=== PATIENT | male | born 1985 | race African-American/Black ===

== ENCOUNTER 2020-09-09 10:50 | Outpatient (REF) | payer OTHER, SELFPAY ==
[2020-09-11 20:46] LABS: Norfentanyl, Ur >500.0 ng/mL (<0.5)
== END 2020-09-09 10:51 | disposition home or self-care (01) ==
LOC: HO.LAB 10:50
PROVIDERS: Visit Provider Internal Medicine
DX: F11.99 Opioid use, unspecified with unspecified opioid-induced disorder (principal); Z72.89 Other problems related to lifestyle; F17.200 Nicotine dependence, unspecified, uncomplicated
CPT/HCPCS: 80305; 80354; 99202

== ENCOUNTER 2020-09-13 11:08 | Outpatient (REF) | payer OTHER, SELFPAY ==
[2020-09-13 12:20] LABS: MANUAL DIFF FLAG NO
[2020-09-13 12:24] LABS: Basophils Percent Auto 0.5 % (0-2); Eosinophils Absolute Auto 0.4 X10*3/uL (0.0-0.4); Hematocrit 44.7 % (42-52); Hemoglobin 15.1 g/dl (14.0-18.0); Imm Gran Abs Auto 0.01 X10*3/uL (0.00-0.03); Imm Gran Pct Auto 0.1 % (0.0-0.4); Lymphocytes Absolute Auto 2.3 X10*3/uL (1.2-4.9); Lymphocytes Percent Auto 25.6 % (20-40); Mean Corpuscular HGB Conc 33.8 g/dl (31.0-36.0); Mean Corpuscular Hemoglobin 30.3 pg (27.0-33.0); Mean Corpuscular Volume 89.8 fL (80-98); Mean Platelet Volume 9.2 fL (9.4-12.4); Monocytes Absolute Auto 0.9 X10*3/uL (0.1-1.2); Monocytes Percent Auto 10.6 % (2-11); Neutrophils Absolute Auto 5.1 X10*3/uL (2.0-8.3); Neutrophils Percent Auto 58.2 % (45-73); Platelet Count 327 X10*3/uL (160-400); Red Blood Count 4.98 X10*6/uL (4.60-5.80); Red Cell Distribution Width 11.9 % (11.0-16.0); White Blood Count 8.8 X10*3/uL (4.8-10.8)
[2020-09-13 13:12] LABS: Alanine Aminotransferase 24 U/L (0-40); Albumin Level 4.3 g/dL (3.5-5.0); Alkaline Phosphatase 100 U/L (39-117); Anion Gap 13 (12-20); Aspartate Amino Transferase 22 U/L (5-37); Bilirubin Direct 0.2 mg/dL (0.0-0.5); Bilirubin Total 0.5 mg/dL (0.0-1.0); Blood Urea Nitrogen 15 mg/dL (9-16); Calcium 9.2 mg/dL (8.4-10.2); Carbon Dioxide 27 mmol/L (22-29); Chloride 100 mmol/L (96-108); Estimated Glomerular Filt Rate > 60; Glucose Random 87 mg/dL (60-115); Potassium 4.3 mmol/L (3.3-5.1); Sodium 136 mmol/L (135-145); Total Protein 6.5 g/dL (6.5-8.0)
[2020-09-16 03:49] LABS: HIV AB/AG Nonreactive (Nonreactive); HIV Num 1 0.13 S/CO (0.00-0.99); ~HepC Num1 0.07 S/CO (0.00-0.79); ~Hepatitis C Antibody Nonreactive (Nonreactive)
[2020-09-16 03:55] LABS: HBsAGNum1 0.35 S/CO (0.00-0.99); Hepatitis B Surface Antigen Negative (Negative); ~Hepatitis B Surface Antibody NONREACTIVE (Nonreactive)
[2020-09-16 16:37] LABS: TS Negative Control Passed; TS Panel A 0; TS Panel B 0; TS Positive Control Passed; TSpotTB Negative (SeeBelow)
[2020-09-18 09:23] LABS: Hepatitis A Antibody IgG Nonreactive (Nonreactive)
== END 2020-09-13 11:09 | disposition home or self-care (01) ==
LOC: HO.LAB 11:08
PROVIDERS: PCP Internal Medicine; Visit Provider Internal Medicine
DX: Z51.81 Encounter for therapeutic drug level monitoring (principal); Z11.4 Encounter for screening for human immunodeficiency virus [HIV]; Z01.84 Encounter for antibody response examination; F11.99 Opioid use, unspecified with unspecified opioid-induced disorder
CPT/HCPCS: 36415; 80048; 80076; 80305; 85025; 86481; 86706; 86708; 86803; 87340; 87389

== ENCOUNTER → 2020-09-17 10:36 | Outpatient (BNVA) | payer OTHER, SELFPAY | PROVIDERS: PCP Internal Medicine; Visit Provider Internal Medicine | DX: F11.99 Opioid use, unspecified with unspecified opioid-induced disorder (principal); Z51.81 Encounter for therapeutic drug level monitoring | CPT/HCPCS: 80305 ==

== ENCOUNTER 2020-12-24 06:52 | Emergency (ER) | payer OTHER, SELFPAY | END 2020-12-24 09:50 | disposition left against medical advice (07) | PROVIDERS: Emergency Provider Emergency Medicine | DX: R10.9 Unspecified abdominal pain (principal) ==

== ENCOUNTER 2022-11-28 17:28 | Inpatient (IN) | payer OTHER, SELFPAY ==
[2022-11-28 17:50] VITALS: BP 163/98; PULSE 60; TEMP 36.3
[2022-11-28 18:54] VITALS: BMI 27.3
[2022-11-28] MEDS: Nicotine Polacrilex 2 MG GUM 4 MG BUCCAL (22:37)
[2022-11-28] MEDS: LORazepam 1 MG TABLET PO (22:37)
--- NOTE | 2022-11-29 05:27 | HO.PSYADMNOT ---
HPI Date of Service: 11/29/22 Chief Complaint: Depressive Disorder Sources of Information: patient interviewed, chart reviewed and crisis/core team assessment reviewed HPI Subjective Notes: [place] Warning and Conditional Voluntary Healthcare Proxy: No Guardianship: No Medical Problems Affecting Mental Status: No Narrative: 37 yo male, s/p suicide attempt via overdose of a combination of heroin, 50 bags, standard methadone dose prescribed, #10 Trazodone, #3 Klonopin, #3 Gabapentin and cocaine in response to a job loss and subsequent loss of relationship due to him not being truthful regarding the job loss. Hx of suicide attempts, in 2019 pt jumped from a window in an attempt as well. Reports an increase in depressive sx over the past few months with feelings of irritability. Pt declined to offer much information. He is in bed, reporting not feeling very well, and asks to be left to sleep/rest. Past Psychiatric History: IP: [id number] OP: No current team Medical Evaluation Reviewed: Hospitalist Kirt Pending [facility] Medical History (Updated 11/29/22 @ 11:28 by Renata Mcelroy APRN) Alcohol use disorder Cannabis use disorder Cocaine use disorder Opioid use disorder Recurrent major depression Tobacco use disorder Family History: Denies Social History: Born, raised in [place]. Two sisters. Three children with not a close connection. Completed high school. Lives with partner who just ended their relationship. Recent job loss Denies legal issues Substance History: Cocaine Heroin Cannabis Uses substances to medicate mental health issues and symptoms Followed by [facility] Trauma History: Denies Diagnostics Vital Signs (24Hr): Vital Signs - 24 hr 11/28/22 17:50 Temperature 97.4 F Pulse Rate 60 Blood Pressure 163/98 H Oxygen Delivery Method Room Air BMI result Body Mass Index 27.3 Labs Labs: CBC- WNL 11/27 Chem- GFR Creat Cl 107 11/27 Toxicology Cannabis, Cocaine, Opiates COVID- negative EKG- NSR QTc 446 TSH 0.4 EKG EKG: reviewed EKG Comment: NSR, QTc 446 Meds/Allergies Meds Home Medications Medication Instructions Recorded Confirmed Type methadone 10 mg/mL oral 70 mg PO DAILY 11/29/22 11/29/22 History concentrate (Methadone Intensol) Allergies Allergies Allergy/AdvReac Type Severity Reaction Status Date / Time shellfish derived Allergy Unknown Unknown Verified 09/17/20 11:36 Mental Status Exam Mental Status Exam Patient Appearance: Fatigued Patient Orientation: Person, Place, Time and Situation Level of Consciousness: Drowsy and Sedated Patient Behavior: Passive, Asleep, Avoidant, Fatigued, Isolative and Poor Eye Contact Mood Description: Depressed Affect Description: Flat Patient Cognition Impaired: No Ability to Follow Directions: Fair Speech Pattern: Spontaneous Speech Memory Description: Episodic Impaired Hallucinations: None Delusions: Not Present Perceptual Disturbances: Depersonalization and Derealization Thought Process: Rumination Thought Content: positive for Perseveration and positive for Suicidal Ideation Depressive Symptoms: Sleeping More Than Usual, Feelings of Worthlessness, Hopelessness, Unhappiness, Thoughts of /Suicide, Low Self Esteem and Loss of Energy Judgement: Fair Assessment & Plan Assessment & Plan (1) Recurrent major depression: Status: Acute Code(s): F33.9 - Major depressive disorder, recurrent, unspecified Assessment and Plan: 37 yo male, transfer from [facility], s/p suicide attempt via OD of his daily methadone dose, 50 bags of heroin, 10 trazodone, 3 klonopin, 3 gabapentin and cocaine in response to a job loss and loss of relationship due to not telling his partner he lost his job. Pt expressing hopelessness and thoughts that life is not worth living. Plan: Clonidine, Ativan prn Continue Methadone MVI, Thiamine Diagnostics: Folate, B12, FT4, A1c, Lipid, Mg Collateral Contact When pt feeling better able to participate, discussion of psychotropic regime to treat reported increase in depressive sx. (2) Opioid use disorder: Status: Acute Code(s): F11.99 - Opioid use, unspecified with unspecified opioid-induced disorder (3) Cocaine use disorder: Status: Acute Code(s): F14.10 - Cocaine abuse, uncomplicated (4) Cannabis use disorder: Status: Acute Code(s): F12.90 - Cannabis use, unspecified, uncomplicated Patient educated on: therapeutic strategies Informed Consent: understands Reason for continued inpatient stay Substantial Risk for: harm to self and rapid decompensation Statement Statement: I have reviewed the history and physical and performed a pertinent examination on my patient. No changes have occurred unless specified. If the History and Physical was not performed prior to admission, the Hospitalist's service will be consulted for completing the admission physical. Time Spent With Patient Time: Total time managing care of this patient today ____ minutes.
--- NOTE | 2022-11-29 05:54 | PC.ADMIT ---
Patient is a 37 year old [place] Korean speaking Afghan male admitted as a CV admission to 11/28/22 and placed on 15 minute safety checks. Patient was medically cleared in the [facility] Emergency room, evaluated by YESSENIAN and deemed in need of IPLOC secondary to a suicide attempt by toxic ingestion. Patient had disclosed that he had taken 10 Trazadones, 3 Klonopins, 3 Gabapentin, 50 bags of Heroin and snorted cocaine. His precip, per his report, losing a job and his relationship with his girlfriend. In 2019 patient had a suicide attempt by jumping from a window to end his life. He has had no previous admissions. Patient was cooperative during the admission process and mentioned that he needed someone to let him use his telephone to call his Methadone provider to verify his current dose. He also said that he and his girlfriend were every day drinkers of Etoh and would often share a gallon of liquor. During the admission process, patient said he was glad he survived his suicide attempt and wanted to get help for his substance use. He denied any medical issues. No SI, HI, AH or VH were reported. Lynda Celeste, investigations consultant provider, made aware of admission. Orders received, patient able to sign all legals, safety tool and treatment plan done.
--- NOTE | 2022-11-29 06:14 | PC.NURSE ---
Patient mentioned that he has tried Suboxone before but believes Methadone works better.
--- NOTE | 2022-11-29 08:32 | PC.NURSE ---
Methadone last dose obtained via phone from KAMALA Rendon @ [place], [place]. [phone]. Last dose 11/27/2022 5:59 am 70mg (dose repeated back 2x) .
--- NOTE | 2022-11-29 08:46 | HE.PHANOTE ---
RE: METHADONE Pharmacy has received patients methadone verification form. Patient was confirmed to be on dose of 70 mg daily with last dose of 11/27/22 @ 0559. Confirmed with LEXUS Colon
[2022-11-29] MEDS: Nicotine 21 MG PATCH.TD24 TRANSDERMA (09:08)
[2022-11-29] MEDS: Multivitamin TABLET 1 TAB PO (09:09)
[2022-11-29] MEDS: Folic Acid 1 MG TABLET PO (09:09)
[2022-11-29] MEDS: Thiamine HCL 100 MG TABLET PO (09:09)
[2022-11-29 09:23] VITALS: BP 148/90; PULSE 80; RESP 18; TEMP 36.7; O2SAT 99
[2022-11-29] MEDS: Nicotine Polacrilex 2 MG GUM 4 MG BUCCAL ×4 (11:39→20:15)
--- NOTE | 2022-11-29 14:28 | HO.PM.IMCN ---
History of Present Illness Data of Consult Service Date: 11/29/22 Requesting physician: Renata Mcelroy Primary Care Provider: None Physician HPI Reason for consult: medical H&P 37-year-old male with history of alcohol dependence, polysubstance abuse, opioid dependence on methadone who is a current 1 pack per day smoker admitted to Psychiatry from [facility] ED with consult placed to hospitalist service for medical H and P. He also tells me he consumes 7-8 shots of alcohol on a daily basis. Denies any current withdrawal symptoms or history of withdrawal seizure. He is being monitored on CIWA line has lorazepam p.r.n. for withdrawal. He follows with the [facility] clinic for his methadone and states last inhaled heroin use was 2 days ago. Prior to this he had been clean for some time. He has no complaints at this time and is feeling well. He has been hypertensive since arrival, denies known history of hypertension. BP this am was 148/90. No headaches, visual changes, or chest pain. Vitals otherwise stable. Reviewed vitals from [facility]. Has been persistently hypertensive to 169/113. In the ED, there is mild leukocytosis of 11.2. Renal function normal, electrolyte levels normal. Urine tox screen positive for cannabis, cocaine, opiates. EKG showed NSR, rate 82, no ST/T-wave abnormalities. Does have remote history of IV drug abuse and most recent hepatitis studies on 11/11 were negative. Review of Systems Review of Systems: General: No fevers, malaise, unintentional weight loss HEENT: No blurred vision, diplopia. No sore throat, nasal congestion, rhinorrhea, sinus pain, ear pain Cardiovascular: No chest pain, palpitations, or leg edema Respiratory: No shortness of breath, wheezing, cough GI: No abdominal pain, nausea, vomiting, diarrhea, constipation, melena, hematochezia : No dysuria, hematuria, increased urinary frequency, decreased urinary output MSK: No myalgia, back pain Neuro: No headaches, weakness, paresthesias Skin: No rashes or lesions COUNT INCLUDES THE [facility] Medical History (Updated 11/29/22 @ 14:36 by MARIO ALBERTO Jones) Alcohol use disorder Cannabis use disorder Cocaine use disorder Hypertension Opioid use disorder Recurrent major depression Tobacco use disorder Social History Household Members: Significant Other Housing: House Do you presently have visiting nurse or other home services: No Patient Tobacco Use Status: Current everyday Tobacco user Tobacco use type: Cigarette and Cigar Cigarette Packs Per Day: 2 Cigarettes Per Day: 40.0 Smoked in Last 30 Days: Yes Patient Interested in Nicotine Replacement: Yes Patient Given Instructions on How to Stop Smoking: Yes Date Education Initiated: 11/28/22 Second Hand Smoke Exposure: Yes Use of substances other than those prescribed or required for medical reasons: Yes Substance Use Type: Crack/Cocaine and Opiates Substance Use Frequency: Chronic Longstanding Last Used Substance: Just Prior to Admission Currently Displaying Signs/Symptoms of Drug Intoxication Withdrawal: No Any prior treatment program specific to substance use: No Have you been hit, kicked, punched, or otherwise hurt by someone within the past year? If so, by whom?: No Do you feel safe in your current relationship?: Yes Is there a partner from a previous relationship who is making you feel unsafe now?: No Are you made to feel afraid or neglected: No Spiritual Healthcare Practices: none Episcopalian Healthcare Practices: none Cultural Healthcare Practices: none Advance Directives: No Advance Directives Information Provided: No Do you have thoughts of harming others: None Do you have a plan to hurt others: No Plan Recently lost weight without trying: No Eating poorly because of decreased appetite: No Nutrition Risks: No Nutritional Risk Poor oral hygiene: No Meds Allergies Allergy/AdvReac Type Severity Reaction Status Date / Time shellfish derived Allergy Unknown Unknown Verified 09/17/20 11:36 Active Medications: Current Medications Acetaminophen (Acetaminophen 325 Mg Tablet) 650 mg PO Q6H PRN PRN Reason: Headache/Pain Mild Scale (1-3) Al Hydroxide/Mg Hydroxide (Magnesium Hydrox/Alum Hydrox 30 Ml Oral.Susp) 30 ml PO Q6H PRN PRN Reason: Heartburn/Nausea Clonidine HCl (Clonidine Hcl 0.1 Mg Tablet) 0.1 mg PO TID PRN; Protocol PRN Reason: withdrawal Folic Acid (Folic Acid 1 Mg Tablet) 1 mg PO DAILY NIVIA Last Admin: 11/29/22 09:09 Dose: 1 mg Hydroxyzine HCl (Hydroxyzine Hcl 25 Mg Tablet) 25 mg PO Q6H PRN PRN Reason: Anxiety Lorazepam (Lorazepam 1 Mg Tablet) 1 mg PO Q4H PRN PRN Reason: withdrawal Last Admin: 11/28/22 22:37 Dose: 1 mg Magnesium Hydroxide (Milk Of Magnesia 30 Ml Oral.Susp) 30 ml PO DAILY PRN PRN Reason: Constipation Methadone HCl (Methadone Hcl 20 Mg/2 Ml Oral.Conc) 70 mg PO DAILY [facility] Last Admin: 11/29/22 09:09 Dose: 70 mg Multivitamins/Vitamin C (Multivitamin Tablet) 1 tab PO DAILY [facility] Last Admin: 11/29/22 09:09 Dose: 1 tab Nicotine (Nicotine 21 Mg Patch.Td24) 21 mg TRANSDERMA DAILY [facility] Last Admin: 11/29/22 09:08 Dose: 21 mg Nicotine Polacrilex (Nicotine Polacrilex 2 Mg Gum) 4 mg BUCCAL Q2H PRN PRN Reason: Nicotine Cravings Last Admin: 11/29/22 11:39 Dose: 4 mg Thiamine HCl (Thiamine Hcl 100 Mg Tablet) 100 mg PO DAILY [facility] Last Admin: 11/29/22 09:09 Dose: 100 mg Trazodone HCl (Trazodone Hcl 50 Mg Tablet) 50 mg PO BEDTIME MRX1 PRN PRN Reason: Insomnia Home Medications Medication Instructions Recorded Confirmed Last Taken Type methadone 10 mg/mL oral 70 mg PO DAILY 11/29/22 11/29/22 11/27/22 History concentrate (Methadone Intensol) Physical Exam Vital Signs and Narrative: Vital Signs: Last Vital Signs Temp 98.1 F 11/29/22 09:23 Pulse 80 11/29/22 09:23 Resp 18 11/29/22 09:23 BP 148/90 H 11/29/22 09:23 Pulse Ox 99 11/29/22 09:23 O2 Del Method Room Air 11/29/22 09:23 BMI result Body Mass Index 27.3 Constitutional - Awake and Alert, No apparent distress Eyes - PERRLA, EOMI Cardiovascular - S1S2, RRR, No edema Respiratory - Normal lung expansion, Normal respiratory effort, No respiratory distress, CTA bilaterally Gastrointestinal - NT / ND; +BS; No rebound or guarding Extremities - no calf tenderness bilaterally, no swelling Musculoskeletal - Normal inspection, normal ROM Skin - Warm/Dry Neurological - Alert & oriented x3, CN II-XII in tact, 5/5 strength BUE and BLE Psychological - Appropriate affect Assessment and Plan (1) Routine medical exam: Status: Acute Plan 37-year-old male with history of alcohol dependence, polysubstance abuse, opioid dependence on methadone who is a current 1 pack per day smoker admitted to Psychiatry from [facility] ED with consult placed to hospitalist service for medical H and P. #Mood disorder -plan per Psychiatry # new diagnosis hypertension -persistently elevated blood pressures up to 163/113 at [facility] ED -initiate amlodipine 5 mg daily -monitor blood pressures # alcohol dependence, at risk for serious withdrawal -continue monitoring on CIWA. CIWA score on exam 0 -No hx etoh w/d seizure -Lorazepam prn per protocol #Polysubstance abuse -Last use inh cocaine, heroin 2 days ago -Continue methadone -Plan per psychiatry -Remote history IVDA. Negative hepatitis panel 11/11. LFTs normal #Nicotine dependence -continue NRT -Cessation counseling #Recent dental abscess -tx with abx from dentist who was unable to perform surgery due to elevated blood pressure -not complaining of pain at this time -ibuprofen p.r.n., outpatient follow-up with dentistry Thank you for allowing me to participate in this consult. Signing off at this time. Please do not hesitate to call for further questions. Time Spent With Patient Time: Total time managing care of this patient today ____ minutes.
[2022-11-29 14:54] LABS: Estimated Average Glucose 97 mg/dL
[2022-11-29] MEDS: amLODIPine Besylate 5 MG TABLET PO (14:57)
[2022-11-29 15:01] VITALS: BP 154/94
[2022-11-29 15:07] LABS: Cholesterol 194 mg/dL; HDL Cholesterol 56 mg/dL; LDL Cholesterol Calculated 111 mg/dl; Magnesium 2.2 mg/dL (1.6-2.6); Triglycerides 135 mg/dL
[2022-11-29 15:21] LABS: Free T4 (Free Thyroxine) 1.01 ng/dL (0.71-1.85)
[2022-11-29 15:46] LABS: Folate > 20.0 ng/mL (> or = 4.0); Vitamin B12 1024 pg/mL (200-900)
[2022-11-29 18:00] VITALS: BP 138/82; PULSE 88; RESP 20; TEMP 36.6; O2SAT 98
[2022-11-29] MEDS: LORazepam 1 MG TABLET PO (20:15)
[2022-11-30 08:00] VITALS: BP 122/92; PULSE 72; RESP 18; TEMP 36.3; O2SAT 98
[2022-11-30] MEDS: Multivitamin TABLET 1 TAB PO (08:23)
[2022-11-30] MEDS: amLODIPine Besylate 5 MG TABLET PO (08:23)
[2022-11-30] MEDS: Thiamine HCL 100 MG TABLET PO (08:23)
[2022-11-30] MEDS: Folic Acid 1 MG TABLET PO (08:23)
[2022-11-30] MEDS: Nicotine 21 MG PATCH.TD24 TRANSDERMA (08:27)
[2022-11-30] MEDS: Nicotine Polacrilex 2 MG GUM 4 MG BUCCAL ×3 (08:51→20:11)
--- NOTE | 2022-11-30 11:50 | HO.PSYCHPN ---
Subjective Subjective Date of Service: 11/30/22 Reason For Visit: Depressive Disorder Subjective Notes: Conditional Voluntary Healthcare Proxy: No Guardianship: No Medical Problems Affecting Mental Status: No Interim History: Denies all symptoms today. Attended groups. Declined to meet with mortgage or loan underwriter, states he needs to nap today. Reviewed care in team Medication Compliance: Yes Side effects from medications: No Attending Groups: Yes Review of Systems Acute medical concerns: No Medical Review of Systems: unchanged Mental Status Exam Mental Status Exam Patient Appearance: Fatigued Patient Orientation: Person, Place, Time and Situation Level of Consciousness: Drowsy and Sedated Patient Behavior: Passive, Asleep, Avoidant, Fatigued, Isolative and Poor Eye Contact Mood Description: Depressed Affect Description: Flat Patient Cognition Impaired: No Ability to Follow Directions: Good Speech Pattern: Spontaneous Speech Memory Description: Episodic Impaired Hallucinations: None Delusions: Not Present Perceptual Disturbances: Depersonalization and Derealization Thought Process: Rumination Thought Content: positive for Suicidal Ideation Depressive Symptoms: Sleeping More Than Usual, Feelings of Worthlessness, Hopelessness, Unhappiness, Thoughts of /Suicide, Low Self Esteem and Loss of Energy Judgement: Fair Diagnostics Vital Signs (24Hr): Vital Signs - 24 hr 11/29/22 15:01 11/29/22 18:00 11/30/22 08:00 Temperature 97.8 F 97.4 F Pulse Rate 88 72 Respiratory Rate 20 18 Blood Pressure 154/94 H 138/82 122/92 H Pulse Oximetry 98 98 Oxygen Delivery Method Room Air Room Air BMI result Body Mass Index 27.3 Labs Labs: Laboratory Results - last 48 hr 11/29/22 11/29/22 11/29/22 14:20 14:20 14:20 Estimat Average Glucose 97 Hemoglobin A1c % 5.0 Magnesium 2.2 Triglycerides 135 Cholesterol 194 LDL Cholesterol, Calc 111 HDL Cholesterol 56 Vitamin B12 1024 H Folate > 20.0 Free T4 1.01 Medications Medications Current Medications Acetaminophen (Acetaminophen 325 Mg Tablet) 650 mg PO Q6H PRN PRN Reason: Headache/Pain Mild Scale (1-3) Al Hydroxide/Mg Hydroxide (Magnesium Hydrox/Alum Hydrox 30 Ml Oral.Susp) 30 ml PO Q6H PRN PRN Reason: Heartburn/Nausea Amlodipine Besylate (Amlodipine Besylate 5 Mg Tablet) 5 mg PO DAILY NIVIA; Protocol Last Admin: 11/30/22 08:23 Dose: 5 mg Clonidine HCl (Clonidine Hcl 0.1 Mg Tablet) 0.1 mg PO TID PRN; Protocol PRN Reason: withdrawal Folic Acid (Folic Acid 1 Mg Tablet) 1 mg PO DAILY [facility] Last Admin: 11/30/22 08:23 Dose: 1 mg Hydroxyzine HCl (Hydroxyzine Hcl 25 Mg Tablet) 25 mg PO Q6H PRN PRN Reason: Anxiety Lorazepam (Lorazepam 1 Mg Tablet) 1 mg PO Q4H PRN PRN Reason: withdrawal Last Admin: 11/29/22 20:15 Dose: 1 mg Magnesium Hydroxide (Milk Of Magnesia 30 Ml Oral.Susp) 30 ml PO DAILY PRN PRN Reason: Constipation Methadone HCl (Methadone Hcl 20 Mg/2 Ml Oral.Conc) 70 mg PO DAILY [facility] Last Admin: 11/30/22 08:23 Dose: 70 mg Multivitamins/Vitamin C (Multivitamin Tablet) 1 tab PO DAILY [facility] Last Admin: 11/30/22 08:23 Dose: 1 tab Nicotine (Nicotine 21 Mg Patch.Td24) 21 mg TRANSDERMA DAILY [facility] Last Admin: 11/30/22 08:27 Dose: 21 mg Nicotine Polacrilex (Nicotine Polacrilex 2 Mg Gum) 4 mg BUCCAL Q2H PRN PRN Reason: Nicotine Cravings Last Admin: 11/30/22 08:51 Dose: 4 mg Thiamine HCl (Thiamine Hcl 100 Mg Tablet) 100 mg PO DAILY [facility] Last Admin: 11/30/22 08:23 Dose: 100 mg Trazodone HCl (Trazodone Hcl 50 Mg Tablet) 50 mg PO BEDTIME MRX1 PRN PRN Reason: Insomnia Allergies Allergies Allergy/AdvReac Type Severity Reaction Status Date / Time shellfish derived Allergy Unknown Unknown Verified 09/17/20 11:36 Assessment & Plan Assessment & Plan (1) Recurrent major depression: Status: Acute Code(s): F33.9 - Major depressive disorder, recurrent, unspecified Assessment and Plan: 11/30/22- Continue current regime and plan of care. (2) Opioid use disorder: Status: Acute Code(s): F11.99 - Opioid use, unspecified with unspecified opioid-induced disorder (3) Cocaine use disorder: Status: Acute Code(s): F14.10 - Cocaine abuse, uncomplicated (4) Cannabis use disorder: Status: Acute Code(s): F12.90 - Cannabis use, unspecified, uncomplicated (5) Alcohol use disorder: Status: Acute (6) Tobacco use disorder: Status: Acute Code(s): F17.200 - Nicotine dependence, unspecified, uncomplicated Plan 37-year-old male with history of alcohol dependence, polysubstance abuse, opioid dependence on methadone who is a current 1 pack per day smoker admitted to Psychiatry from [facility] ED with consult placed to hospitalist service for medical H and P. #Mood disorder -plan per Psychiatry # new diagnosis hypertension -persistently elevated blood pressures up to 163/113 at [facility] ED -initiate amlodipine 5 mg daily -monitor blood pressures # alcohol dependence, at risk for serious withdrawal -continue monitoring on CIWA. CIWA score on exam 0 -No hx etoh w/d seizure -Lorazepam prn per protocol #Polysubstance abuse -Last use inh cocaine, heroin 2 days ago -Continue methadone -Plan per psychiatry -Remote history IVDA. Negative hepatitis panel 11/11. LFTs normal #Nicotine dependence -continue NRT -Cessation counseling #Recent dental abscess -tx with abx from dentist who was unable to perform surgery due to elevated blood pressure -not complaining of pain at this time -ibuprofen p.r.n., outpatient follow-up with dentistry Thank you for allowing me to participate in this consult. Signing off at this time. Please do not hesitate to call for further questions. Informed Consent: understands Reason for continued inpatient stay Substantial Risk for: rapid decompensation Time Spent With Patient Time: Total time managing care of this patient today ____ minutes.
[2022-11-30] MEDS: LORazepam 1 MG TABLET PO ×2 (12:56→20:09)
[2022-11-30] MEDS: hydrOXYzine HCL 25 MG TABLET PO (20:08)
[2022-11-30 20:25] VITALS: BP 138/90; PULSE 74; TEMP 37.2
[2022-12-01] MEDS: Nicotine 21 MG PATCH.TD24 TRANSDERMA (08:29)
[2022-12-01] MEDS: Multivitamin TABLET 1 TAB PO (08:29)
[2022-12-01] MEDS: amLODIPine Besylate 5 MG TABLET PO (08:29)
[2022-12-01] MEDS: Thiamine HCL 100 MG TABLET PO (08:29)
[2022-12-01] MEDS: Folic Acid 1 MG TABLET PO (08:30)
[2022-12-01 08:50] VITALS: BP 136/88; PULSE 67; RESP 18; TEMP 36.2; O2SAT 100
[2022-12-01] MEDS: Nicotine Polacrilex 2 MG GUM 4 MG BUCCAL ×5 (09:08→21:02)
--- NOTE | 2022-12-01 11:46 | HO.PSYCHPN ---
Subjective Subjective Date of Service: 12/01/22 Reason For Visit: Depressive Disorder Interim History: Seen and discussed with RN. Reports he is doing well. Denies any withdrawal symptoms. Asking for three days notice. Denies all symptoms today. Attended groups. Review of Systems Review of Systems General: No fevers, malaise, unintentional weight loss HEENT: No blurred vision, diplopia. No sore throat, nasal congestion, rhinorrhea, sinus pain, ear pain Cardiovascular: No chest pain, palpitations, or leg edema Respiratory: No shortness of breath, wheezing, cough GI: No abdominal pain, nausea, vomiting, diarrhea, constipation, melena, hematochezia : No dysuria, hematuria, increased urinary frequency, decreased urinary output MSK: No myalgia, back pain Neuro: No headaches, weakness, paresthesias Skin: No rashes or lesions Yes Unobtainable due to mental status Reports behavioral changes Psychiatric: Reports behavioral changes, Reports depression, Reports hopelessness, Reports anhedonia and Reports suicidal ideation Mental Status Exam Mental Status Exam Patient Appearance: Fatigued Patient Orientation: Person, Place, Time and Situation Level of Consciousness: Drowsy and Sedated Patient Behavior: Passive, Asleep, Avoidant, Fatigued, Isolative and Poor Eye Contact Mood Description: Depressed Affect Description: Flat Patient Cognition Impaired: No Ability to Follow Directions: Good Speech Pattern: Spontaneous Speech Memory Description: Episodic Impaired Diagnostics Vital Signs (24Hr): Vital Signs - 24 hr 11/30/22 20:25 12/01/22 08:50 Temperature 99 F 97.1 F Pulse Rate 74 67 Respiratory Rate 18 Blood Pressure 138/90 H 136/88 Pulse Oximetry 100 Oxygen Delivery Method Room Air BMI result Body Mass Index 27.3 Labs Labs: Laboratory Results - last 48 hr 11/29/22 11/29/22 11/29/22 14:20 14:20 14:20 Estimat Average Glucose 97 Hemoglobin A1c % 5.0 Magnesium 2.2 Triglycerides 135 Cholesterol 194 LDL Cholesterol, Calc 111 HDL Cholesterol 56 Vitamin B12 1024 H Folate > 20.0 Free T4 1.01 Medications Medications Current Medications Al Hydroxide/Mg Hydroxide (Magnesium Hydrox/Alum Hydrox 30 Ml Oral.Susp) 30 ml PO Q6H PRN PRN Reason: Heartburn/Nausea Amlodipine Besylate (Amlodipine Besylate 5 Mg Tablet) 5 mg PO DAILY [facility]; Protocol Last Admin: 12/01/22 08:29 Dose: 5 mg Clonidine HCl (Clonidine Hcl 0.1 Mg Tablet) 0.1 mg PO TID PRN; Protocol PRN Reason: withdrawal Folic Acid (Folic Acid 1 Mg Tablet) 1 mg PO DAILY [facility] Last Admin: 12/01/22 08:30 Dose: 1 mg Hydroxyzine HCl (Hydroxyzine Hcl 25 Mg Tablet) 25 mg PO Q6H PRN PRN Reason: Anxiety Last Admin: 11/30/22 20:08 Dose: 25 mg Ibuprofen (Ibuprofen 400 Mg Tablet) 400 mg PO TIDWM PRN PRN Reason: Pain, Mild (Pain Scale 1-3) Last Admin: 12/01/22 10:12 Dose: 400 mg Lorazepam (Lorazepam 1 Mg Tablet) 1 mg PO Q4H PRN PRN Reason: withdrawal Last Admin: 11/30/22 20:09 Dose: 1 mg Magnesium Hydroxide (Milk Of Magnesia 30 Ml Oral.Susp) 30 ml PO DAILY PRN PRN Reason: Constipation Methadone HCl (Methadone Hcl 20 Mg/2 Ml Oral.Conc) 70 mg PO DAILY [facility] Last Admin: 12/01/22 08:28 Dose: 70 mg Multivitamins/Vitamin C (Multivitamin Tablet) 1 tab PO DAILY [facility] Last Admin: 12/01/22 08:29 Dose: 1 tab Nicotine (Nicotine 21 Mg Patch.Td24) 21 mg TRANSDERMA DAILY [facility] Last Admin: 12/01/22 08:29 Dose: 21 mg Nicotine Polacrilex (Nicotine Polacrilex 2 Mg Gum) 4 mg BUCCAL Q2H PRN PRN Reason: Nicotine Cravings Last Admin: 12/01/22 09:08 Dose: 4 mg Thiamine HCl (Thiamine Hcl 100 Mg Tablet) 100 mg PO DAILY [facility] Last Admin: 12/01/22 08:29 Dose: 100 mg Trazodone HCl (Trazodone Hcl 50 Mg Tablet) 50 mg PO BEDTIME MRX1 PRN PRN Reason: Insomnia Allergies Allergies Allergy/AdvReac Type Severity Reaction Status Date / Time shellfish derived Allergy Unknown Unknown Verified 09/17/20 11:36 Assessment & Plan Assessment & Plan (1) Recurrent major depression: Status: Acute Code(s): F33.9 - Major depressive disorder, recurrent, unspecified Assessment and Plan: 11/30/22- Continue current regime and plan of care. (2) Opioid use disorder: Status: Acute Code(s): F11.99 - Opioid use, unspecified with unspecified opioid-induced disorder (3) Cocaine use disorder: Status: Acute Code(s): F14.10 - Cocaine abuse, uncomplicated (4) Cannabis use disorder: Status: Acute Code(s): F12.90 - Cannabis use, unspecified, uncomplicated (5) Alcohol use disorder: Status: Acute (6) Tobacco use disorder: Status: Acute Code(s): F17.200 - Nicotine dependence, unspecified, uncomplicated Assessment and Plan: 37 yo male, transfer from [facility], s/p suicide attempt via OD of his daily methadone dose, 50 bags of heroin, 10 trazodone, 3 klonopin, 3 gabapentin and cocaine in response to a job loss and loss of relationship due to not telling his partner he lost his job. Pt expressing hopelessness and thoughts that life is not worth living. Plan: Clonidine, Ativan prn Continue Methadone MVI, Thiamine Diagnostics: Folate, B12, FT4, A1c, Lipid, Mg Collateral Contact When pt feeling better able to participate, discussion of psychotropic regime to treat reported increase in depressive sx. 12/01: DC CIWA. Continue treatment plan. Plan 37-year-old male with history of alcohol dependence, polysubstance abuse, opioid dependence on methadone who is a current 1 pack per day smoker admitted to Psychiatry from [facility] ED with consult placed to hospitalist service for medical H and P. #Mood disorder -plan per Psychiatry # new diagnosis hypertension -persistently elevated blood pressures up to 163/113 at [facility] ED -initiate amlodipine 5 mg daily -monitor blood pressures # alcohol dependence, at risk for serious withdrawal -continue monitoring on CIWA. CIWA score on exam 0 -No hx etoh w/d seizure -Lorazepam prn per protocol #Polysubstance abuse -Last use inh cocaine, heroin 2 days ago -Continue methadone -Plan per psychiatry -Remote history IVDA. Negative hepatitis panel 11/11. LFTs normal #Nicotine dependence -continue NRT -Cessation counseling #Recent dental abscess -tx with abx from dentist who was unable to perform surgery due to elevated blood pressure -not complaining of pain at this time -ibuprofen p.r.n., outpatient follow-up with dentistry Thank you for allowing me to participate in this consult. Signing off at this time. Please do not hesitate to call for further questions. Reason for continued inpatient stay Substantial Risk for: harm to self, inability to function and rapid decompensation Time Spent With Patient Time: Total time managing care of this patient today ____ minutes.
[2022-12-01 12:45] VITALS: BP 125/83
[2022-12-01] MEDS: cloNIDine HCL 0.1 MG TABLET PO ×2 (12:56→17:49)
[2022-12-01 17:45] VITALS: BP 101/74; PULSE 75; TEMP 35.3
[2022-12-01] MEDS: LORazepam 1 MG TABLET PO (17:49)
[2022-12-01] MEDS: traZODone HCL 50 MG TABLET PO (21:04)
[2022-12-01] MEDS: hydrOXYzine HCL 25 MG TABLET PO (21:04)
[2022-12-02] MEDS: Folic Acid 1 MG TABLET PO (07:55)
[2022-12-02] MEDS: amLODIPine Besylate 5 MG TABLET PO (07:55)
[2022-12-02] MEDS: Multivitamin TABLET 1 TAB PO (07:55)
[2022-12-02] MEDS: Thiamine HCL 100 MG TABLET PO (07:55)
[2022-12-02] MEDS: Nicotine 21 MG PATCH.TD24 TRANSDERMA (07:56)
[2022-12-02 08:15] VITALS: BP 136/78; PULSE 62; RESP 18; TEMP 36.1; O2SAT 97
[2022-12-02] MEDS: Nicotine Polacrilex 2 MG GUM 4 MG BUCCAL ×4 (09:35→21:06)
[2022-12-02] MEDS: hydrOXYzine HCL 25 MG TABLET PO ×2 (09:35→15:33)
[2022-12-02] MEDS: LORazepam 1 MG TABLET PO ×2 (15:33→21:06)
--- NOTE | 2022-12-02 16:49 | HO.PSYCHPN ---
Subjective Subjective Date of Service: 12/02/22 Reason For Visit: Depressive Disorder Subjective Notes: Conditional Voluntary Healthcare Proxy: No Guardianship: No Medical Problems Affecting Mental Status: No Interim History: Met with pt. Discussed this being the first real day he has been out of bed, able to participate in treatment. Reports he has been attempting groups. Reports heroin/cocaine relapse due to pain, stress, not seeing my kids (5 total, able to see 2 regularly, the other 3 he does not see). Sleep and anxiety are issues. No perceptual alterations, no current SI. Feeling improved. He will be able to keep his job he reports and he has been able to work out issues with his partner so they will not be ending their relationship. Medication Compliance: Yes Side effects from medications: No Attending Groups: Yes Review of Systems Acute medical concerns: No Medical Review of Systems: unchanged Mental Status Exam Mental Status Exam Patient Appearance: Appropriate Patient Orientation: Person, Place, Time and Situation Level of Consciousness: Alert Patient Behavior: Talkative, Cooperative and Good Eye Contact Mood Description: Depressed and Apprehensive Affect Description: Flat and Apprehensive Patient Cognition Impaired: No Ability to Follow Directions: Good Speech Pattern: Spontaneous Speech Memory Description: Intact Hallucinations: None Delusions: Not Present Thought Process: Rumination Thought Content: positive for Perseveration Depressive Symptoms: Increased Anxiety and Difficulty Sleeping Judgement: Good Diagnostics Vital Signs (24Hr): Vital Signs - 24 hr 12/01/22 17:45 12/02/22 08:15 Temperature 95.6 F L 97.0 F Pulse Rate 75 62 Respiratory Rate 18 Blood Pressure 101/74 136/78 Pulse Oximetry 97 Oxygen Delivery Method Room Air BMI result Body Mass Index 27.3 Medications Medications Current Medications Al Hydroxide/Mg Hydroxide (Magnesium Hydrox/Alum Hydrox 30 Ml Oral.Susp) 30 ml PO Q6H PRN PRN Reason: Heartburn/Nausea Amlodipine Besylate (Amlodipine Besylate 5 Mg Tablet) 5 mg PO DAILY [facility]; Protocol Last Admin: 12/02/22 07:55 Dose: 5 mg Clonidine HCl (Clonidine Hcl 0.1 Mg Tablet) 0.1 mg PO TID PRN; Protocol PRN Reason: withdrawal Last Admin: 12/01/22 17:49 Dose: 0.1 mg Folic Acid (Folic Acid 1 Mg Tablet) 1 mg PO DAILY [facility] Last Admin: 12/02/22 07:55 Dose: 1 mg Hydroxyzine HCl (Hydroxyzine Hcl 25 Mg Tablet) 25 mg PO Q6H PRN PRN Reason: Anxiety Last Admin: 12/02/22 15:33 Dose: 25 mg Ibuprofen (Ibuprofen 400 Mg Tablet) 400 mg PO TIDWM PRN PRN Reason: Pain, Mild (Pain Scale 1-3) Last Admin: 12/01/22 10:12 Dose: 400 mg Lorazepam (Lorazepam 1 Mg Tablet) 1 mg PO Q4H PRN PRN Reason: withdrawal Last Admin: 12/02/22 15:33 Dose: 1 mg Magnesium Hydroxide (Milk Of Magnesia 30 Ml Oral.Susp) 30 ml PO DAILY PRN PRN Reason: Constipation Methadone HCl (Methadone Hcl 20 Mg/2 Ml Oral.Conc) 70 mg PO DAILY [facility] Last Admin: 12/02/22 07:53 Dose: 70 mg Multivitamins/Vitamin C (Multivitamin Tablet) 1 tab PO DAILY [facility] Last Admin: 12/02/22 07:55 Dose: 1 tab Nicotine (Nicotine 21 Mg Patch.Td24) 21 mg TRANSDERMA DAILY [facility] Last Admin: 12/02/22 07:56 Dose: 21 mg Nicotine Polacrilex (Nicotine Polacrilex 2 Mg Gum) 4 mg BUCCAL Q2H PRN PRN Reason: Nicotine Cravings Last Admin: 12/02/22 15:33 Dose: 4 mg Thiamine HCl (Thiamine Hcl 100 Mg Tablet) 100 mg PO DAILY [facility] Last Admin: 12/02/22 07:55 Dose: 100 mg Trazodone HCl (Trazodone Hcl 50 Mg Tablet) 50 mg PO BEDTIME MRX1 PRN PRN Reason: Insomnia Last Admin: 12/01/22 21:04 Dose: 50 mg Allergies Allergies Allergy/AdvReac Type Severity Reaction Status Date / Time shellfish derived Allergy Unknown Unknown Verified 09/17/20 11:36 Assessment & Plan Assessment & Plan (1) Recurrent major depression: Status: Acute Code(s): F33.9 - Major depressive disorder, recurrent, unspecified Assessment and Plan: 11/30/22- Continue current regime and plan of care. (2) Opioid use disorder: Status: Acute Code(s): F11.99 - Opioid use, unspecified with unspecified opioid-induced disorder (3) Cocaine use disorder: Status: Acute Code(s): F14.10 - Cocaine abuse, uncomplicated (4) Cannabis use disorder: Status: Acute Code(s): F12.90 - Cannabis use, unspecified, uncomplicated (5) Alcohol use disorder: Status: Acute (6) Tobacco use disorder: Status: Acute Code(s): F17.200 - Nicotine dependence, unspecified, uncomplicated Assessment and Plan: 37 yo male, transfer from [facility], s/p suicide attempt via OD of his daily methadone dose, 50 bags of heroin, 10 trazodone, 3 klonopin, 3 gabapentin and cocaine in response to a job loss and loss of relationship due to not telling his partner he lost his job. Pt expressing hopelessness and thoughts that life is not worth living. Plan: Clonidine, Ativan prn Continue Methadone MVI, Thiamine Diagnostics: Folate, B12, FT4, A1c, Lipid, Mg Collateral Contact When pt feeling better able to participate, discussion of psychotropic regime to treat reported increase in depressive sx. 12/01: DC CIWA. Continue treatment plan. 12/02/22: Continue regime and plan of care. Plan 37-year-old male with history of alcohol dependence, polysubstance abuse, opioid dependence on methadone who is a current 1 pack per day smoker admitted to Psychiatry from [facility] ED with consult placed to hospitalist service for medical H and P. #Mood disorder -plan per Psychiatry # new diagnosis hypertension -persistently elevated blood pressures up to 163/113 at [facility] ED -initiate amlodipine 5 mg daily -monitor blood pressures # alcohol dependence, at risk for serious withdrawal -continue monitoring on CIWA. CIWA score on exam 0 -No hx etoh w/d seizure -Lorazepam prn per protocol #Polysubstance abuse -Last use inh cocaine, heroin 2 days ago -Continue methadone -Plan per psychiatry -Remote history IVDA. Negative hepatitis panel 11/11. LFTs normal #Nicotine dependence -continue NRT -Cessation counseling #Recent dental abscess -tx with abx from dentist who was unable to perform surgery due to elevated blood pressure -not complaining of pain at this time -ibuprofen p.r.n., outpatient follow-up with dentistry Thank you for allowing me to participate in this consult. Signing off at this time. Please do not hesitate to call for further questions. Patient educated on: therapeutic strategies Informed Consent: understands Reason for continued inpatient stay Substantial Risk for: harm to self and rapid decompensation Time Spent With Patient Time: Total time managing care of this patient today ____ minutes.
[2022-12-02] MEDS: cloNIDine HCL 0.1 MG TABLET PO (21:07)
[2022-12-02] MEDS: traZODone HCL 50 MG TABLET PO (21:07)
[2022-12-02 21:10] VITALS: BP 128/78; PULSE 91; RESP 18
[2022-12-03] MEDS: traZODone HCL 50 MG TABLET PO ×2 (04:12→21:16)
[2022-12-03] MEDS: Nicotine 21 MG PATCH.TD24 TRANSDERMA (08:40)
[2022-12-03] MEDS: Folic Acid 1 MG TABLET PO (08:41)
[2022-12-03] MEDS: Thiamine HCL 100 MG TABLET PO (08:41)
[2022-12-03] MEDS: Multivitamin TABLET 1 TAB PO (08:41)
[2022-12-03] MEDS: amLODIPine Besylate 5 MG TABLET PO (08:41)
[2022-12-03 08:50] VITALS: BP 126/85; PULSE 68; RESP 18; TEMP 36.2; O2SAT 100
[2022-12-03] MEDS: Nicotine Polacrilex 2 MG GUM 4 MG BUCCAL ×3 (09:08→21:16)
[2022-12-03] MEDS: LORazepam 1 MG TABLET PO ×2 (09:08→17:58)
[2022-12-03] MEDS: hydrOXYzine HCL 25 MG TABLET PO ×2 (12:12→17:58)
--- NOTE | 2022-12-03 15:48 | HO.PSYCHPN ---
Subjective Subjective Date of Service: 12/03/22 Reason For Visit: Depressive Disorder Subjective Notes: Conditional Voluntary Healthcare Proxy: No Guardianship: No Medical Problems Affecting Mental Status: No Interim History: Discussed treatment needs. Anxiety, anger mgt, need for recovery coaching, AA. Methadone currently with N. Team will make a referral to [facility] as well. Pt may need a letter to return to work. Will trial Trileptal 300 mg bid to begin to address anxiety/mood/anger Discharge planning for next week. Medication Compliance: Yes Side effects from medications: No Attending Groups: Intermittent Review of Systems Acute medical concerns: No Medical Review of Systems: unchanged Mental Status Exam Mental Status Exam Patient Appearance: Appropriate Patient Orientation: Person, Place, Time and Situation Level of Consciousness: Alert Patient Behavior: Appropriate, Talkative, Cooperative and Good Eye Contact Mood Description: Constricted Affect Description: Constricted Patient Cognition Impaired: No Ability to Follow Directions: Good Speech Pattern: Spontaneous Speech Memory Description: Intact Hallucinations: None Delusions: Not Present Thought Process: Distracted Thought Content: positive for Circumstantial Depressive Symptoms: Increased Anxiety Judgement: Good Diagnostics Vital Signs (24Hr): Vital Signs - 24 hr 12/02/22 21:10 12/03/22 08:50 Temperature 97.2 F Pulse Rate 91 68 Respiratory Rate 18 18 Blood Pressure 128/78 126/85 Pulse Oximetry 100 Oxygen Delivery Method Room Air BMI result Body Mass Index 27.3 Medications Medications Current Medications Al Hydroxide/Mg Hydroxide (Magnesium Hydrox/Alum Hydrox 30 Ml Oral.Susp) 30 ml PO Q6H PRN PRN Reason: Heartburn/Nausea Amlodipine Besylate (Amlodipine Besylate 5 Mg Tablet) 5 mg PO DAILY [facility]; Protocol Last Admin: 12/03/22 08:41 Dose: 5 mg Clonidine HCl (Clonidine Hcl 0.1 Mg Tablet) 0.1 mg PO TID PRN; Protocol PRN Reason: withdrawal Last Admin: 12/02/22 21:07 Dose: 0.1 mg Folic Acid (Folic Acid 1 Mg Tablet) 1 mg PO DAILY [facility] Last Admin: 12/03/22 08:41 Dose: 1 mg Hydroxyzine HCl (Hydroxyzine Hcl 25 Mg Tablet) 25 mg PO Q6H PRN PRN Reason: Anxiety Last Admin: 12/03/22 12:12 Dose: 25 mg Ibuprofen (Ibuprofen 400 Mg Tablet) 400 mg PO TIDWM PRN PRN Reason: Pain, Mild (Pain Scale 1-3) Last Admin: 12/01/22 10:12 Dose: 400 mg Lorazepam (Lorazepam 1 Mg Tablet) 1 mg PO Q4H PRN PRN Reason: withdrawal Last Admin: 12/03/22 09:08 Dose: 1 mg Magnesium Hydroxide (Milk Of Magnesia 30 Ml Oral.Susp) 30 ml PO DAILY PRN PRN Reason: Constipation Methadone HCl (Methadone Hcl 20 Mg/2 Ml Oral.Conc) 70 mg PO DAILY [facility] Last Admin: 12/03/22 08:41 Dose: 70 mg Multivitamins/Vitamin C (Multivitamin Tablet) 1 tab PO DAILY [facility] Last Admin: 12/03/22 08:41 Dose: 1 tab Nicotine (Nicotine 21 Mg Patch.Td24) 21 mg TRANSDERMA DAILY [facility] Last Admin: 12/03/22 08:40 Dose: 21 mg Nicotine Polacrilex (Nicotine Polacrilex 2 Mg Gum) 4 mg BUCCAL Q2H PRN PRN Reason: Nicotine Cravings Last Admin: 12/03/22 09:08 Dose: 4 mg Oxcarbazepine (Oxcarbazepine 300 Mg Tablet) 300 mg PO BID [facility] Thiamine HCl (Thiamine Hcl 100 Mg Tablet) 100 mg PO DAILY [facility] Last Admin: 12/03/22 08:41 Dose: 100 mg Trazodone HCl (Trazodone Hcl 50 Mg Tablet) 50 mg PO BEDTIME MRX1 PRN PRN Reason: Insomnia Last Admin: 12/03/22 04:12 Dose: 50 mg Allergies Allergies Allergy/AdvReac Type Severity Reaction Status Date / Time shellfish derived Allergy Unknown Unknown Verified 09/17/20 11:36 Assessment & Plan Assessment & Plan (1) Recurrent major depression: Status: Acute Code(s): F33.9 - Major depressive disorder, recurrent, unspecified Assessment and Plan: 11/30/22- Continue current regime and plan of care. (2) Opioid use disorder: Status: Acute Code(s): F11.99 - Opioid use, unspecified with unspecified opioid-induced disorder (3) Cocaine use disorder: Status: Acute Code(s): F14.10 - Cocaine abuse, uncomplicated (4) Cannabis use disorder: Status: Acute Code(s): F12.90 - Cannabis use, unspecified, uncomplicated (5) Alcohol use disorder: Status: Acute (6) Tobacco use disorder: Status: Acute Code(s): F17.200 - Nicotine dependence, unspecified, uncomplicated Assessment and Plan: 37 yo male, transfer from [facility], s/p suicide attempt via OD of his daily methadone dose, 50 bags of heroin, 10 trazodone, 3 klonopin, 3 gabapentin and cocaine in response to a job loss and loss of relationship due to not telling his partner he lost his job. Pt expressing hopelessness and thoughts that life is not worth living. Plan: Clonidine, Ativan prn Continue Methadone MVI, Thiamine Diagnostics: Folate, B12, FT4, A1c, Lipid, Mg Collateral Contact When pt feeling better able to participate, discussion of psychotropic regime to treat reported increase in depressive sx. 12/01: DC CIWA. Continue treatment plan. 12/03/22: Trileptal 300 mg bid Addiction consult: Recovery coaching Plan 37-year-old male with history of alcohol dependence, polysubstance abuse, opioid dependence on methadone who is a current 1 pack per day smoker admitted to Psychiatry from [facility] ED with consult placed to hospitalist service for medical H and P. #Mood disorder -plan per Psychiatry # new diagnosis hypertension -persistently elevated blood pressures up to 163/113 at [facility] ED -initiate amlodipine 5 mg daily -monitor blood pressures # alcohol dependence, at risk for serious withdrawal -continue monitoring on CIWA. CIWA score on exam 0 -No hx etoh w/d seizure -Lorazepam prn per protocol #Polysubstance abuse -Last use inh cocaine, heroin 2 days ago -Continue methadone -Plan per psychiatry -Remote history IVDA. Negative hepatitis panel 11/11. LFTs normal #Nicotine dependence -continue NRT -Cessation counseling #Recent dental abscess -tx with abx from dentist who was unable to perform surgery due to elevated blood pressure -not complaining of pain at this time -ibuprofen p.r.n., outpatient follow-up with dentistry Thank you for allowing me to participate in this consult. Signing off at this time. Please do not hesitate to call for further questions. Patient educated on: medication risk/benefits and therapeutic strategies Informed Consent: understands and further education needed Reason for continued inpatient stay Substantial Risk for: rapid decompensation Time Spent With Patient Time: Total time managing care of this patient today ____ minutes.
[2022-12-03 16:28] VITALS: BP 147/78; PULSE 84; RESP 16; TEMP 35.9; O2SAT 98
--- NOTE | 2022-12-03 20:28 | MHC.RECOVSUP ---
? Reason for consult recovery support o Current location: [phone] Identified substance use concern: heroin - Support ? Intervention o Community resources provided o Harm reduction discussion ? Plan o Patient to follow up with [facility] after discharge ? Additional information: met with patient and wetalked about recovery and [facility] [place].
[2022-12-03] MEDS: OXcarbazepine 300 MG TABLET PO (21:15)
[2022-12-03] MEDS: cloNIDine HCL 0.1 MG TABLET PO (21:15)
[2022-12-04] MEDS: traZODone HCL 50 MG TABLET PO ×2 (03:20→20:56)
[2022-12-04] MEDS: Nicotine 21 MG PATCH.TD24 TRANSDERMA (08:16)
[2022-12-04] MEDS: amLODIPine Besylate 5 MG TABLET PO (08:16)
[2022-12-04] MEDS: Thiamine HCL 100 MG TABLET PO (08:16)
[2022-12-04] MEDS: Multivitamin TABLET 1 TAB PO (08:16)
[2022-12-04] MEDS: Folic Acid 1 MG TABLET PO (08:16)
[2022-12-04] MEDS: OXcarbazepine 300 MG TABLET PO ×2 (08:16→20:53)
[2022-12-04 08:20] VITALS: BP 123/69; PULSE 104; RESP 16; TEMP 36.3; O2SAT 100
[2022-12-04] MEDS: Nicotine Polacrilex 2 MG GUM 4 MG BUCCAL ×4 (08:21→20:56)
[2022-12-04] MEDS: LORazepam 1 MG TABLET PO ×2 (08:21→16:39)
--- NOTE | 2022-12-04 09:09 | HO.PSYCHPN ---
Subjective Subjective Date of Service: 12/04/22 Reason For Visit: Depressive Disorder Subjective Notes: Conditional Voluntary Interim History: Pt reports he has been sleeping and eating well. He denies SI/HI. He reports medications are helping. He denies any physical concerns. Per nursing, pt slept through the night. No behavioral concerns. But peer did instigate him last evening. awaiting referral for dual dx program. Medication Compliance: Yes Side effects from medications: No Review of Systems Review of Systems General: No fevers, malaise, unintentional weight loss HEENT: No blurred vision, diplopia. No sore throat, nasal congestion, rhinorrhea, sinus pain, ear pain Cardiovascular: No chest pain, palpitations, or leg edema Respiratory: No shortness of breath, wheezing, cough GI: No abdominal pain, nausea, vomiting, diarrhea, constipation, melena, hematochezia : No dysuria, hematuria, increased urinary frequency, decreased urinary output MSK: No myalgia, back pain Neuro: No headaches, weakness, paresthesias Skin: No rashes or lesions Yes Unobtainable due to mental status Reports behavioral changes Psychiatric: Reports behavioral changes, Reports depression, Reports hopelessness, Reports anhedonia and Reports suicidal ideation Mental Status Exam Mental Status Exam Narrative: Appearance: casually groomed, good hygiene, in NAD Behavior: cooperative Psychomotor: no agitation or retardation noted Speech: clear, normal rate/rhythm/volume, spontaneous TP: linear TC: no signs of psychosis, future oriented, Mood: okay Affect: bright, non labile SI: denies HI: denies VH/AH: none Delusions: none Insight/judgment: fair Memory/cog: alert, oriented x 3. grossly intact to conversational testing. Diagnostics Vital Signs (24Hr): Vital Signs - 24 hr 12/03/22 16:28 Temperature 96.7 F L Pulse Rate 84 Respiratory Rate 16 Blood Pressure 147/78 H Pulse Oximetry 98 Oxygen Delivery Method Room Air BMI result Body Mass Index 27.3 Medications Medications Current Medications Al Hydroxide/Mg Hydroxide (Magnesium Hydrox/Alum Hydrox 30 Ml Oral.Susp) 30 ml PO Q6H PRN PRN Reason: Heartburn/Nausea Amlodipine Besylate (Amlodipine Besylate 5 Mg Tablet) 5 mg PO DAILY [facility]; Protocol Last Admin: 12/04/22 08:16 Dose: 5 mg Clonidine HCl (Clonidine Hcl 0.1 Mg Tablet) 0.1 mg PO TID PRN; Protocol PRN Reason: withdrawal Last Admin: 12/03/22 21:15 Dose: 0.1 mg Folic Acid (Folic Acid 1 Mg Tablet) 1 mg PO DAILY [facility] Last Admin: 12/04/22 08:16 Dose: 1 mg Hydroxyzine HCl (Hydroxyzine Hcl 25 Mg Tablet) 25 mg PO Q6H PRN PRN Reason: Anxiety Last Admin: 12/03/22 17:58 Dose: 25 mg Ibuprofen (Ibuprofen 400 Mg Tablet) 400 mg PO TIDWM PRN PRN Reason: Pain, Mild (Pain Scale 1-3) Last Admin: 12/03/22 18:36 Dose: 400 mg Lorazepam (Lorazepam 1 Mg Tablet) 1 mg PO Q4H PRN PRN Reason: withdrawal Last Admin: 12/04/22 08:21 Dose: 1 mg Magnesium Hydroxide (Milk Of Magnesia 30 Ml Oral.Susp) 30 ml PO DAILY PRN PRN Reason: Constipation Methadone HCl (Methadone Hcl 20 Mg/2 Ml Oral.Conc) 70 mg PO DAILY [facility] Last Admin: 12/04/22 08:14 Dose: 70 mg Multivitamins/Vitamin C (Multivitamin Tablet) 1 tab PO DAILY [facility] Last Admin: 12/04/22 08:16 Dose: 1 tab Nicotine (Nicotine 21 Mg Patch.Td24) 21 mg TRANSDERMA DAILY [facility] Last Admin: 12/04/22 08:16 Dose: 21 mg Nicotine Polacrilex (Nicotine Polacrilex 2 Mg Gum) 4 mg BUCCAL Q2H PRN PRN Reason: Nicotine Cravings Last Admin: 12/04/22 08:21 Dose: 4 mg Oxcarbazepine (Oxcarbazepine 300 Mg Tablet) 300 mg PO BID [facility] Last Admin: 12/04/22 08:16 Dose: 300 mg Thiamine HCl (Thiamine Hcl 100 Mg Tablet) 100 mg PO DAILY [facility] Last Admin: 12/04/22 08:16 Dose: 100 mg Trazodone HCl (Trazodone Hcl 50 Mg Tablet) 50 mg PO BEDTIME MRX1 PRN PRN Reason: Insomnia Last Admin: 12/04/22 03:20 Dose: 50 mg Allergies Allergies Allergy/AdvReac Type Severity Reaction Status Date / Time shellfish derived Allergy Unknown Unknown Verified 09/17/20 11:36 Assessment & Plan Assessment & Plan (1) Recurrent major depression: Status: Acute Code(s): F33.9 - Major depressive disorder, recurrent, unspecified Assessment and Plan: 11/30/22- Continue current regime and plan of care. (2) Opioid use disorder: Status: Acute Code(s): F11.99 - Opioid use, unspecified with unspecified opioid-induced disorder (3) Cocaine use disorder: Status: Acute Code(s): F14.10 - Cocaine abuse, uncomplicated (4) Cannabis use disorder: Status: Acute Code(s): F12.90 - Cannabis use, unspecified, uncomplicated (5) Alcohol use disorder: Status: Acute (6) Tobacco use disorder: Status: Acute Code(s): F17.200 - Nicotine dependence, unspecified, uncomplicated Assessment and Plan: 37 yo male, transfer from [facility], s/p suicide attempt via OD of his daily methadone dose, 50 bags of heroin, 10 trazodone, 3 klonopin, 3 gabapentin and cocaine in response to a job loss and loss of relationship due to not telling his partner he lost his job. Pt expressing hopelessness and thoughts that life is not worth living. Plan: Clonidine, Ativan prn Continue Methadone MVI, Thiamine Diagnostics: Folate, B12, FT4, A1c, Lipid, Mg Collateral Contact When pt feeling better able to participate, discussion of psychotropic regime to treat reported increase in depressive sx. 12/01: DC CIWA. Continue treatment plan. 12/03/22: Trileptal 300 mg bid Addiction consult: Recovery coaching 12/04 continue tx. Plan 37-year-old male with history of alcohol dependence, polysubstance abuse, opioid dependence on methadone who is a current 1 pack per day smoker admitted to Psychiatry from [facility] ED with consult placed to hospitalist service for medical H and P. #Mood disorder -plan per Psychiatry # new diagnosis hypertension -persistently elevated blood pressures up to 163/113 at [facility] ED -initiate amlodipine 5 mg daily -monitor blood pressures # alcohol dependence, at risk for serious withdrawal -continue monitoring on CIWA. CIWA score on exam 0 -No hx etoh w/d seizure -Lorazepam prn per protocol #Polysubstance abuse -Last use inh cocaine, heroin 2 days ago -Continue methadone -Plan per psychiatry -Remote history IVDA. Negative hepatitis panel 11/11. LFTs normal #Nicotine dependence -continue NRT -Cessation counseling #Recent dental abscess -tx with abx from dentist who was unable to perform surgery due to elevated blood pressure -not complaining of pain at this time -ibuprofen p.r.n., outpatient follow-up with dentistry Thank you for allowing me to participate in this consult. Signing off at this time. Please do not hesitate to call for further questions. Reason for continued inpatient stay Substantial Risk for: inability to function Time Spent With Patient Time: Total time managing care of this patient today ____ minutes.
[2022-12-04] MEDS: hydrOXYzine HCL 25 MG TABLET PO ×2 (12:45→20:56)
--- NOTE | 2022-12-04 17:12 | PM.EVENT ---
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
[2022-12-04 17:36] VITALS: BP 117/76; PULSE 88; RESP 16; TEMP 35.8; O2SAT 99
[2022-12-04 20:45] VITALS: BP 131/85; PULSE 80; RESP 18; O2SAT 97
[2022-12-04] MEDS: cloNIDine HCL 0.1 MG TABLET PO (20:56)
[2022-12-05] MEDS: traZODone HCL 50 MG TABLET PO ×2 (01:24→21:00)
[2022-12-05] MEDS: Folic Acid 1 MG TABLET PO (08:42)
[2022-12-05] MEDS: Multivitamin TABLET 1 TAB PO (08:42)
[2022-12-05] MEDS: Nicotine 21 MG PATCH.TD24 TRANSDERMA (08:43)
[2022-12-05] MEDS: OXcarbazepine 300 MG TABLET PO ×2 (08:43→21:00)
[2022-12-05] MEDS: Thiamine HCL 100 MG TABLET PO (08:43)
[2022-12-05] MEDS: amLODIPine Besylate 5 MG TABLET PO (08:43)
[2022-12-05 08:46] VITALS: BP 115/84; PULSE 77; RESP 18; TEMP 36.8; O2SAT 98
[2022-12-05] MEDS: Nicotine Polacrilex 2 MG GUM 4 MG BUCCAL ×5 (09:10→21:01)
[2022-12-05] MEDS: LORazepam 1 MG TABLET PO ×3 (09:13→21:36)
--- NOTE | 2022-12-05 10:06 | HO.PSYCHPN ---
Subjective Subjective Date of Service: 12/05/22 Reason For Visit: Depressive Disorder Subjective Notes: Conditional Voluntary Healthcare Proxy: No Guardianship: No Medical Problems Affecting Mental Status: No Interim History: Pt upset about door slam by another patient right before our interview- has sign on his door to not knock as this kind of noise triggers him- Pt discussed wanting to taper his methadone- hopes to get off it - though I told him data shows that staying on methadone leads to less relapse- He would like a lower dose in any case as it makes him a bit sleepy- Patient denies current SI, continues to get anxious/irritable with noises Medication Compliance: Yes Side effects from medications: Yes (some sedation in am after methadone dose) Attending Groups: Intermittent Review of Systems Acute medical concerns: No Mental Status Exam Mental Status Exam Patient Appearance: Well Grooomed and Appropriate Patient Orientation: Person, Place, Time and Situation Level of Consciousness: Awake and Appropriate Patient Behavior: Appropriate and Cooperative Mood Description: Calm Affect Description: Calm and Appropriate Patient Cognition Impaired: No Ability to Follow Directions: Fair Speech Pattern: Clear Hallucinations: None Delusions: Not Present Thought Process: Intact and Goal Oriented Thought Content: positive for Intact Depressive Symptoms: Increased Irritability (improving!) Abnormal Motor Activity Signs and Symptoms: Restlessness Judgement: Fair Diagnostics Vital Signs (24Hr): Vital Signs - 24 hr 12/04/22 17:36 12/04/22 20:45 12/05/22 08:46 Temperature 96.5 F L 98.2 F Pulse Rate 88 80 77 Respiratory Rate 16 18 18 Blood Pressure 117/76 131/85 115/84 Pulse Oximetry 99 97 98 Oxygen Delivery Method Room Air Room Air Room Air BMI result Body Mass Index 27.3 Medications Medications Current Medications Al Hydroxide/Mg Hydroxide (Magnesium Hydrox/Alum Hydrox 30 Ml Oral.Susp) 30 ml PO Q6H PRN PRN Reason: Heartburn/Nausea Amlodipine Besylate (Amlodipine Besylate 5 Mg Tablet) 5 mg PO DAILY [facility]; Protocol Last Admin: 12/05/22 08:43 Dose: 5 mg Clonidine HCl (Clonidine Hcl 0.1 Mg Tablet) 0.1 mg PO TID PRN; Protocol PRN Reason: withdrawal Last Admin: 12/04/22 20:56 Dose: 0.1 mg Folic Acid (Folic Acid 1 Mg Tablet) 1 mg PO DAILY [facility] Last Admin: 12/05/22 08:42 Dose: 1 mg Hydroxyzine HCl (Hydroxyzine Hcl 25 Mg Tablet) 25 mg PO Q6H PRN PRN Reason: Anxiety Last Admin: 12/04/22 20:56 Dose: 25 mg Ibuprofen (Ibuprofen 400 Mg Tablet) 400 mg PO TIDWM PRN PRN Reason: Pain, Mild (Pain Scale 1-3) Last Admin: 12/03/22 18:36 Dose: 400 mg Lorazepam (Lorazepam 1 Mg Tablet) 1 mg PO Q4H PRN PRN Reason: withdrawal Last Admin: 12/05/22 09:13 Dose: 1 mg Magnesium Hydroxide (Milk Of Magnesia 30 Ml Oral.Susp) 30 ml PO DAILY PRN PRN Reason: Constipation Methadone HCl (Methadone Hcl 20 Mg/2 Ml Oral.Conc) 70 mg PO DAILY [facility] Last Admin: 12/05/22 08:43 Dose: 70 mg Multivitamins/Vitamin C (Multivitamin Tablet) 1 tab PO DAILY [facility] Last Admin: 12/05/22 08:42 Dose: 1 tab Nicotine (Nicotine 21 Mg Patch.Td24) 21 mg TRANSDERMA DAILY [facility] Last Admin: 12/05/22 08:43 Dose: 21 mg Nicotine Polacrilex (Nicotine Polacrilex 2 Mg Gum) 4 mg BUCCAL Q2H PRN PRN Reason: Nicotine Cravings Last Admin: 12/05/22 09:10 Dose: 4 mg Oxcarbazepine (Oxcarbazepine 300 Mg Tablet) 300 mg PO BID [facility] Last Admin: 12/05/22 08:43 Dose: 300 mg Thiamine HCl (Thiamine Hcl 100 Mg Tablet) 100 mg PO DAILY [facility] Last Admin: 12/05/22 08:43 Dose: 100 mg Trazodone HCl (Trazodone Hcl 50 Mg Tablet) 50 mg PO BEDTIME MRX1 PRN PRN Reason: Insomnia Last Admin: 12/05/22 01:24 Dose: 50 mg Allergies Allergies Allergy/AdvReac Type Severity Reaction Status Date / Time shellfish derived Allergy Unknown Unknown Verified 09/17/20 11:36 Assessment & Plan Assessment & Plan (1) Recurrent major depression: Status: Acute Code(s): F33.9 - Major depressive disorder, recurrent, unspecified Assessment and Plan: 11/30/22- Continue current regime and plan of care. (2) Opioid use disorder: Status: Acute Code(s): F11.99 - Opioid use, unspecified with unspecified opioid-induced disorder (3) Cocaine use disorder: Status: Acute Code(s): F14.10 - Cocaine abuse, uncomplicated (4) Cannabis use disorder: Status: Acute Code(s): F12.90 - Cannabis use, unspecified, uncomplicated (5) Alcohol use disorder: Status: Acute (6) Tobacco use disorder: Status: Acute Code(s): F17.200 - Nicotine dependence, unspecified, uncomplicated Assessment and Plan: 37 yo male, transfer from [facility], s/p suicide attempt via OD of his daily methadone dose, 50 bags of heroin, 10 trazodone, 3 klonopin, 3 gabapentin and cocaine in response to a job loss and loss of relationship due to not telling his partner he lost his job. Pt expressing hopelessness and thoughts that life is not worth living. Plan: Clonidine, Ativan prn Continue Methadone MVI, Thiamine Diagnostics: Folate, B12, FT4, A1c, Lipid, Mg Collateral Contact When pt feeling better able to participate, discussion of psychotropic regime to treat reported increase in depressive sx. 12/01: DC CIWA. Continue treatment plan. 12/03/22: Trileptal 300 mg bid Addiction consult: Recovery coaching 12/04 continue tx. 12/05 lower methadone to 65mg- otherwise CTP Plan 37-year-old male with history of alcohol dependence, polysubstance abuse, opioid dependence on methadone who is a current 1 pack per day smoker admitted to Psychiatry from [facility] ED with consult placed to hospitalist service for medical H and P. #Mood disorder -plan per Psychiatry # new diagnosis hypertension -persistently elevated blood pressures up to 163/113 at [facility] ED -initiate amlodipine 5 mg daily -monitor blood pressures # alcohol dependence, at risk for serious withdrawal -continue monitoring on CIWA. CIWA score on exam 0 -No hx etoh w/d seizure -Lorazepam prn per protocol #Polysubstance abuse -Last use inh cocaine, heroin 2 days ago -Continue methadone -Plan per psychiatry -Remote history IVDA. Negative hepatitis panel 11/11. LFTs normal #Nicotine dependence -continue NRT -Cessation counseling #Recent dental abscess -tx with abx from dentist who was unable to perform surgery due to elevated blood pressure -not complaining of pain at this time -ibuprofen p.r.n., outpatient follow-up with dentistry Thank you for allowing me to participate in this consult. Signing off at this time. Please do not hesitate to call for further questions. Patient educated on: medication risk/benefits and substance abuse Informed Consent: understands Reason for continued inpatient stay Substantial Risk for: inability to function and rapid decompensation Time Spent With Patient Time: Total time managing care of this patient today ____ minutes.
[2022-12-05] MEDS: hydrOXYzine HCL 25 MG TABLET PO (11:17)
[2022-12-05 18:00] VITALS: BP 125/77; PULSE 95; TEMP 36.6; O2SAT 99
[2022-12-05] MEDS: cloNIDine HCL 0.1 MG TABLET PO (20:58)
[2022-12-06] MEDS: traZODone HCL 50 MG TABLET PO ×3 (00:59→23:55)
[2022-12-06] MEDS: Nicotine Polacrilex 2 MG GUM 4 MG BUCCAL ×5 (01:04→20:28)
[2022-12-06 08:00] VITALS: BP 121/82; PULSE 72; RESP 18; TEMP 36.1; O2SAT 97
[2022-12-06] MEDS: Nicotine 21 MG PATCH.TD24 TRANSDERMA (09:08)
[2022-12-06] MEDS: methADONE HCl 20 MG/2 ML ORAL.CONC 65 MG PO (09:09)
[2022-12-06] MEDS: Thiamine HCL 100 MG TABLET PO (09:10)
[2022-12-06] MEDS: amLODIPine Besylate 5 MG TABLET PO (09:10)
[2022-12-06] MEDS: Folic Acid 1 MG TABLET PO (09:10)
[2022-12-06] MEDS: OXcarbazepine 300 MG TABLET PO ×2 (09:10→20:23)
[2022-12-06] MEDS: Multivitamin TABLET 1 TAB PO (09:10)
[2022-12-06] MEDS: LORazepam 1 MG TABLET PO ×2 (09:59→17:54)
--- NOTE | 2022-12-06 10:24 | HO.PSYCHPN ---
Subjective Subjective Date of Service: 12/06/22 Reason For Visit: Depressive Disorder Subjective Notes: Conditional Voluntary Interim History: Patient reports he is doing better- mood lew, and anxiety lew - feels he is managing himself - does report ah of angels on shoulder good and bad and feels that good is prevailing - denies si/hi. or medication s/e Mental Status Exam Mental Status Exam Patient Appearance: Well Grooomed and Appropriate Patient Orientation: Person, Place, Time and Situation Level of Consciousness: Awake and Appropriate Patient Behavior: Appropriate and Cooperative Mood Description: Calm Affect Description: Calm and Appropriate Patient Cognition Impaired: No Ability to Follow Directions: Fair Speech Pattern: Clear Hallucinations: Auditory (good and bad thoughts- as angels that help) Delusions: Not Present Thought Process: Intact and Goal Oriented Thought Content: positive for Intact Judgement: Fair Diagnostics Vital Signs (24Hr): Vital Signs - 24 hr 12/05/22 18:00 Temperature 97.9 F Pulse Rate 95 Blood Pressure 125/77 Pulse Oximetry 99 Oxygen Delivery Method Room Air BMI result Body Mass Index 27.3 Medications Medications Current Medications Al Hydroxide/Mg Hydroxide (Magnesium Hydrox/Alum Hydrox 30 Ml Oral.Susp) 30 ml PO Q6H PRN PRN Reason: Heartburn/Nausea Amlodipine Besylate (Amlodipine Besylate 5 Mg Tablet) 5 mg PO DAILY [facility]; Protocol Last Admin: 12/06/22 09:10 Dose: 5 mg Clonidine HCl (Clonidine Hcl 0.1 Mg Tablet) 0.1 mg PO TID PRN; Protocol PRN Reason: withdrawal Last Admin: 12/05/22 20:58 Dose: 0.1 mg Folic Acid (Folic Acid 1 Mg Tablet) 1 mg PO DAILY [facility] Last Admin: 12/06/22 09:10 Dose: 1 mg Hydroxyzine HCl (Hydroxyzine Hcl 25 Mg Tablet) 25 mg PO Q6H PRN PRN Reason: Anxiety Last Admin: 12/05/22 11:17 Dose: 25 mg Ibuprofen (Ibuprofen 400 Mg Tablet) 400 mg PO TIDWM PRN PRN Reason: Pain, Mild (Pain Scale 1-3) Last Admin: 12/03/22 18:36 Dose: 400 mg Lorazepam (Lorazepam 1 Mg Tablet) 1 mg PO Q8H PRN PRN Reason: withdrawal Last Admin: 12/06/22 09:59 Dose: 1 mg Magnesium Hydroxide (Milk Of Magnesia 30 Ml Oral.Susp) 30 ml PO DAILY PRN PRN Reason: Constipation Methadone HCl (Methadone Hcl 20 Mg/2 Ml Oral.Conc) 65 mg PO DAILY [facility] Last Admin: 12/06/22 09:09 Dose: 65 mg Multivitamins/Vitamin C (Multivitamin Tablet) 1 tab PO DAILY [facility] Last Admin: 12/06/22 09:10 Dose: 1 tab Nicotine (Nicotine 21 Mg Patch.Td24) 21 mg TRANSDERMA DAILY [facility] Last Admin: 12/06/22 09:08 Dose: 21 mg Nicotine Polacrilex (Nicotine Polacrilex 2 Mg Gum) 4 mg BUCCAL Q2H PRN PRN Reason: Nicotine Cravings Last Admin: 12/06/22 09:38 Dose: 4 mg Oxcarbazepine (Oxcarbazepine 300 Mg Tablet) 300 mg PO BID [facility] Last Admin: 12/06/22 09:10 Dose: 300 mg Thiamine HCl (Thiamine Hcl 100 Mg Tablet) 100 mg PO DAILY [facility] Last Admin: 12/06/22 09:10 Dose: 100 mg Trazodone HCl (Trazodone Hcl 50 Mg Tablet) 50 mg PO BEDTIME MRX1 PRN PRN Reason: Insomnia Last Admin: 12/06/22 00:59 Dose: 50 mg Allergies Allergies Allergy/AdvReac Type Severity Reaction Status Date / Time shellfish derived Allergy Unknown Unknown Verified 09/17/20 11:36 Assessment & Plan Assessment & Plan (1) Recurrent major depression: Status: Acute Code(s): F33.9 - Major depressive disorder, recurrent, unspecified Assessment and Plan: 11/30/22- Continue current regime and plan of care. (2) Opioid use disorder: Status: Acute Code(s): F11.99 - Opioid use, unspecified with unspecified opioid-induced disorder (3) Cocaine use disorder: Status: Acute Code(s): F14.10 - Cocaine abuse, uncomplicated (4) Cannabis use disorder: Status: Acute Code(s): F12.90 - Cannabis use, unspecified, uncomplicated (5) Alcohol use disorder: Status: Acute (6) Tobacco use disorder: Status: Acute Code(s): F17.200 - Nicotine dependence, unspecified, uncomplicated Assessment and Plan: 37 yo male, transfer from [facility], s/p suicide attempt via OD of his daily methadone dose, 50 bags of heroin, 10 trazodone, 3 klonopin, 3 gabapentin and cocaine in response to a job loss and loss of relationship due to not telling his partner he lost his job. Pt expressing hopelessness and thoughts that life is not worth living. Plan: Clonidine, Ativan prn Continue Methadone MVI, Thiamine Diagnostics: Folate, B12, FT4, A1c, Lipid, Mg Collateral Contact When pt feeling better able to participate, discussion of psychotropic regime to treat reported increase in depressive sx. 12/01: DC CIWA. Continue treatment plan. 12/03/22: Trileptal 300 mg bid Addiction consult: Recovery coaching 12/04 continue tx. 12/05 lower methadone to 65mg- otherwise CTP 12/06 improving- CTP Plan 37-year-old male with history of alcohol dependence, polysubstance abuse, opioid dependence on methadone who is a current 1 pack per day smoker admitted to Psychiatry from [facility] ED with consult placed to hospitalist service for medical H and P. #Mood disorder -plan per Psychiatry # new diagnosis hypertension -persistently elevated blood pressures up to 163/113 at [facility] ED -initiate amlodipine 5 mg daily -monitor blood pressures # alcohol dependence, at risk for serious withdrawal -continue monitoring on CIWA. CIWA score on exam 0 -No hx etoh w/d seizure -Lorazepam prn per protocol #Polysubstance abuse -Last use inh cocaine, heroin 2 days ago -Continue methadone -Plan per psychiatry -Remote history IVDA. Negative hepatitis panel 11/11. LFTs normal #Nicotine dependence -continue NRT -Cessation counseling #Recent dental abscess -tx with abx from dentist who was unable to perform surgery due to elevated blood pressure -not complaining of pain at this time -ibuprofen p.r.n., outpatient follow-up with dentistry Thank you for allowing me to participate in this consult. Signing off at this time. Please do not hesitate to call for further questions. Patient educated on: medication risk/benefits and therapeutic strategies Informed Consent: understands Reason for continued inpatient stay Substantial Risk for: rapid decompensation Time Spent With Patient Time: Total time managing care of this patient today ____ minutes.
[2022-12-06] MEDS: hydrOXYzine HCL 25 MG TABLET PO ×2 (12:44→20:24)
[2022-12-06 17:15] VITALS: BP 105/77; PULSE 98; RESP 18; TEMP 36; O2SAT 99
[2022-12-06] MEDS: cloNIDine HCL 0.1 MG TABLET PO (20:24)
[2022-12-07 06:00] VITALS: BP 103/69; PULSE 82; RESP 16; TEMP 36.2; O2SAT 97
[2022-12-07] MEDS: Nicotine 21 MG PATCH.TD24 TRANSDERMA (09:03)
[2022-12-07] MEDS: OXcarbazepine 300 MG TABLET PO ×2 (09:04→20:45)
[2022-12-07] MEDS: Thiamine HCL 100 MG TABLET PO (09:04)
[2022-12-07] MEDS: Multivitamin TABLET 1 TAB PO (09:04)
[2022-12-07] MEDS: Folic Acid 1 MG TABLET PO (09:04)
[2022-12-07] MEDS: methADONE HCl 20 MG/2 ML ORAL.CONC 65 MG PO (09:04)
[2022-12-07] MEDS: amLODIPine Besylate 5 MG TABLET PO (09:04)
[2022-12-07] MEDS: LORazepam 1 MG TABLET PO ×2 (09:10→17:02)
[2022-12-07] MEDS: cloNIDine HCL 0.1 MG TABLET PO ×2 (13:31→20:46)
[2022-12-07] MEDS: Nicotine Polacrilex 2 MG GUM 4 MG BUCCAL ×3 (13:31→20:53)
[2022-12-07 13:32] VITALS: BP 126/74; PULSE 81
[2022-12-07] MEDS: hydrOXYzine HCL 25 MG TABLET PO (17:02)
[2022-12-07 18:00] VITALS: BP 111/74; PULSE 79; RESP 18; TEMP 36.6; O2SAT 97
--- NOTE | 2022-12-07 18:27 | HO.PSYCHPN ---
Subjective Subjective Date of Service: 12/07/22 Reason For Visit: Depressive Disorder Subjective Notes: Conditional Voluntary Healthcare Proxy: No Guardianship: No Medical Problems Affecting Mental Status: No Interim History: Reviewed with team who report some intermittent agitation over the weekend with behavioral outbursts which were contained. He does cite anger mgt as an issues and would like a referral. Preparing for discharge on Wednesday. No concerns to report today, states he would like to rest this afternoon. No issues he wanted to discuss. Medication Compliance: Yes Side effects from medications: No Attending Groups: Intermittent Review of Systems Acute medical concerns: No Medical Review of Systems: unchanged Mental Status Exam Mental Status Exam Patient Appearance: Appropriate Patient Orientation: Person, Place, Time and Situation Level of Consciousness: Alert Patient Behavior: Appropriate and Cooperative Mood Description: Constricted Affect Description: Constricted Patient Cognition Impaired: No Ability to Follow Directions: Good Speech Pattern: Spontaneous Speech Memory Description: Intact Hallucinations: None Delusions: Not Present Thought Process: Intact Thought Content: positive for Intact Depressive Symptoms: Thoughts of /Suicide (denies) Judgement: Good Diagnostics Vital Signs (24Hr): Vital Signs - 24 hr 12/07/22 06:00 12/07/22 13:32 Temperature 97.2 F Pulse Rate 82 81 Respiratory Rate 16 Blood Pressure 103/69 126/74 Pulse Oximetry 97 Oxygen Delivery Method Room Air BMI result Body Mass Index 27.3 Medications Medications Current Medications Al Hydroxide/Mg Hydroxide (Magnesium Hydrox/Alum Hydrox 30 Ml Oral.Susp) 30 ml PO Q6H PRN PRN Reason: Heartburn/Nausea Amlodipine Besylate (Amlodipine Besylate 5 Mg Tablet) 5 mg PO DAILY NIVIA; Protocol Last Admin: 12/07/22 09:04 Dose: 5 mg Clonidine HCl (Clonidine Hcl 0.1 Mg Tablet) 0.1 mg PO TID PRN; Protocol PRN Reason: withdrawal Last Admin: 12/07/22 13:31 Dose: 0.1 mg Folic Acid (Folic Acid 1 Mg Tablet) 1 mg PO DAILY NIVIA Last Admin: 12/07/22 09:04 Dose: 1 mg Hydroxyzine HCl (Hydroxyzine Hcl 25 Mg Tablet) 25 mg PO Q6H PRN PRN Reason: Anxiety Last Admin: 12/07/22 17:02 Dose: 25 mg Ibuprofen (Ibuprofen 400 Mg Tablet) 400 mg PO TIDWM PRN PRN Reason: Pain, Mild (Pain Scale 1-3) Last Admin: 12/07/22 06:08 Dose: 400 mg Lorazepam (Lorazepam 1 Mg Tablet) 1 mg PO Q8H PRN PRN Reason: withdrawal Last Admin: 12/07/22 17:02 Dose: 1 mg Magnesium Hydroxide (Milk Of Magnesia 30 Ml Oral.Susp) 30 ml PO DAILY PRN PRN Reason: Constipation Methadone HCl (Methadone Hcl 20 Mg/2 Ml Oral.Conc) 65 mg PO DAILY [facility] Last Admin: 12/07/22 09:04 Dose: 65 mg Multivitamins/Vitamin C (Multivitamin Tablet) 1 tab PO DAILY [facility] Last Admin: 12/07/22 09:04 Dose: 1 tab Nicotine (Nicotine 21 Mg Patch.Td24) 21 mg TRANSDERMA DAILY [facility] Last Admin: 12/07/22 09:03 Dose: 21 mg Nicotine Polacrilex (Nicotine Polacrilex 2 Mg Gum) 4 mg BUCCAL Q2H PRN PRN Reason: Nicotine Cravings Last Admin: 12/07/22 17:05 Dose: 4 mg Oxcarbazepine (Oxcarbazepine 300 Mg Tablet) 300 mg PO BID [facility] Last Admin: 12/07/22 09:04 Dose: 300 mg Thiamine HCl (Thiamine Hcl 100 Mg Tablet) 100 mg PO DAILY [facility] Last Admin: 12/07/22 09:04 Dose: 100 mg Trazodone HCl (Trazodone Hcl 50 Mg Tablet) 50 mg PO BEDTIME MRX1 PRN PRN Reason: Insomnia Last Admin: 12/06/22 23:55 Dose: 50 mg Allergies Allergies Allergy/AdvReac Type Severity Reaction Status Date / Time shellfish derived Allergy Unknown Unknown Verified 09/17/20 11:36 Assessment & Plan Assessment & Plan (1) Recurrent major depression: Status: Acute Code(s): F33.9 - Major depressive disorder, recurrent, unspecified Assessment and Plan: 11/30/22- Continue current regime and plan of care. (2) Opioid use disorder: Status: Acute Code(s): F11.99 - Opioid use, unspecified with unspecified opioid-induced disorder (3) Cocaine use disorder: Status: Acute Code(s): F14.10 - Cocaine abuse, uncomplicated (4) Cannabis use disorder: Status: Acute Code(s): F12.90 - Cannabis use, unspecified, uncomplicated (5) Alcohol use disorder: Status: Acute (6) Tobacco use disorder: Status: Acute Code(s): F17.200 - Nicotine dependence, unspecified, uncomplicated Assessment and Plan: 37 yo male, transfer from [facility], s/p suicide attempt via OD of his daily methadone dose, 50 bags of heroin, 10 trazodone, 3 klonopin, 3 gabapentin and cocaine in response to a job loss and loss of relationship due to not telling his partner he lost his job. Pt expressing hopelessness and thoughts that life is not worth living. Plan: Clonidine, Ativan prn Continue Methadone MVI, Thiamine Diagnostics: Folate, B12, FT4, A1c, Lipid, Mg Collateral Contact When pt feeling better able to participate, discussion of psychotropic regime to treat reported increase in depressive sx. 12/01: DC CIWA. Continue treatment plan. 12/03/22: Trileptal 300 mg bid Addiction consult: Recovery coaching 12/04 continue tx. 12/05 lower methadone to 65mg- otherwise CTP 12/06 improving- CTP 12/07/22 Continue regime and plan of care Discharge 12/08/22. Plan 37-year-old male with history of alcohol dependence, polysubstance abuse, opioid dependence on methadone who is a current 1 pack per day smoker admitted to Psychiatry from [facility] ED with consult placed to hospitalist service for medical H and P. #Mood disorder -plan per Psychiatry # new diagnosis hypertension -persistently elevated blood pressures up to 163/113 at [facility] ED -initiate amlodipine 5 mg daily -monitor blood pressures # alcohol dependence, at risk for serious withdrawal -continue monitoring on CIWA. CIWA score on exam 0 -No hx etoh w/d seizure -Lorazepam prn per protocol #Polysubstance abuse -Last use inh cocaine, heroin 2 days ago -Continue methadone -Plan per psychiatry -Remote history IVDA. Negative hepatitis panel 11/11. LFTs normal #Nicotine dependence -continue NRT -Cessation counseling #Recent dental abscess -tx with abx from dentist who was unable to perform surgery due to elevated blood pressure -not complaining of pain at this time -ibuprofen p.r.n., outpatient follow-up with dentistry Thank you for allowing me to participate in this consult. Signing off at this time. Please do not hesitate to call for further questions. Informed Consent: understands Reason for continued inpatient stay Substantial Risk for: stable for discharge Time Spent With Patient Time: Total time managing care of this patient today ____ minutes.
[2022-12-07] MEDS: traZODone HCL 50 MG TABLET PO (20:46)
[2022-12-08] MEDS: traZODone HCL 50 MG TABLET PO (01:43)
[2022-12-08] MEDS: hydrOXYzine HCL 25 MG TABLET PO ×2 (01:43→08:54)
[2022-12-08 06:00] VITALS: BP 119/76; PULSE 70; RESP 16; TEMP 36.4; O2SAT 97
[2022-12-08] MEDS: Folic Acid 1 MG TABLET PO (08:22)
[2022-12-08] MEDS: amLODIPine Besylate 5 MG TABLET PO (08:22)
[2022-12-08] MEDS: OXcarbazepine 300 MG TABLET PO (08:22)
[2022-12-08] MEDS: Multivitamin TABLET 1 TAB PO (08:22)
[2022-12-08] MEDS: Thiamine HCL 100 MG TABLET PO (08:22)
[2022-12-08] MEDS: methADONE HCl 20 MG/2 ML ORAL.CONC 65 MG PO (08:23)
[2022-12-08] MEDS: Nicotine 21 MG PATCH.TD24 TRANSDERMA (08:24)
[2022-12-08 08:50] VITALS: BP 129/83; PULSE 81
[2022-12-08] MEDS: cloNIDine HCL 0.1 MG TABLET PO (08:54)
[2022-12-08] MEDS: LORazepam 1 MG TABLET PO (08:54)
--- NOTE | 2022-12-08 16:59 | PM.PSYDC ---
DS: Providers Provider Date of Service: 12/08/22 Date of admission: 11/28/22 17:28 Date of discharge: 12/08/22 Primary care physician: None Physician Admitting clinician: Renata Mcelroy Attending physician on admission: Bill Vigil Consults: 11/28/22 20:16 Consult to Hospitalist Routine Comment: Consulting Provider: Hospitalist Reason For Exam: Transfer from [facility] 12/03/22 18:17 Addiction Medicine Routine Consulting Provider: Addiction Covering Reason for consultation: recovery coaching Has provider been notified: No Attending physician on discharge: Bill Vigil Discharging clinician: Renata Mcelroy DS: Diagnosis Discharge Diagnosis (1) Recurrent major depression: Status: Acute (2) Opioid use disorder: Status: Acute (3) Cocaine use disorder: Status: Acute (4) Cannabis use disorder: Status: Acute (5) Alcohol use disorder: Status: Acute (6) Tobacco use disorder: Status: Acute DS: Medications Discharge Medications Home Medications: Previous Rx's Medication Instructions Recorded amlodipine 5 mg tablet 5 mg PO DAILY #30 tabs 12/07/22 folic acid 1 mg tablet 1 mg PO DAILY #30 tabs 12/07/22 methadone 10 mg/mL oral 65 mg (6.5 mL) PO DAILY #0 mL 12/07/22 concentrate (Methadose) multivitamin (Daily-Kwame tablet) 1 tab PO DAILY #30 tabs 12/07/22 naloxone 4 mg/actuation nasal 4 mg intranasal Q2M PRN opioid 12/07/22 spray (Narcan) overdose #2 ea nicotine (polacrilex) 2 mg gum 4 mg buccal Q2H PRN Nicotine 12/07/22 Cravings #60 ea nicotine 21 mg/24 hr daily 21 mg transdermal DAILY #30 ea 12/07/22 transdermal patch oxcarbazepine 300 mg tablet 300 mg PO BID #60 tabs 12/07/22 thiamine mononitrate (vit B1) 100 100 mg PO DAILY #30 tabs 12/07/22 mg tablet Mental Status Exam Mental Status Exam Patient Appearance: Appropriate Patient Orientation: Person, Place, Time and Situation Level of Consciousness: Alert Patient Behavior: Appropriate and Cooperative Mood Description: Constricted Affect Description: Constricted Patient Cognition Impaired: No Ability to Follow Directions: Good Speech Pattern: Spontaneous Speech Memory Description: Intact Hallucinations: None Delusions: Not Present Thought Process: Intact Thought Content: positive for Intact Depressive Symptoms: Thoughts of /Suicide (denies) Judgement: Good DS: Summary Hospital Course Hospital Course: Admission to adult psychiatry for exacerbation of polysubstance use with resulting mood dysregulation, SI. This in the context of a job loss and relationship loss due to pt not communicating with his partner of his job loss. Pt with depression, irritability. Medications were evaluated and adjusted. Pt was able to work with his partner to resolve this crisis and will return to their home and to his agency for a different work assignment. Time spent discussing smoking cessation with patient: 3 to 10 minutes Status at Discharge Functional status at discharge: independent ambulation Overall status at discharge: patient is progressing back to baseline Time Spent with Patient Time attestation: Total time managing care of this patient today ____ minutes. Time spent: Greater than 30 minutes Discharge Plan Discharge Anticipated Discharge Date/Time: 12/08/22 12:00 Patient Disposition: Home, Self-Care Discharge Diagnosis: Mood Disorder-Mixed Polysubstance Use Disorder-Opiates, Cocaine, Alcohol, Cannabis, Nicotine Referrals: [facility] [Other] (Walk in if needed) [facility] [Other] - 3-5 Days [facility] [Other] - 3-5 Days [facility] Intake Roberto Dsa [Other] - 12/10/22 11:00 am [facility] Psyche Eval Christina Leiva [Other] - 01/07/23 11:30 am ([facility]) [facility] Med Mgmnt Christina Leiva [Other] - 02/04/23 11:00 am ([facility]) [facility] PCP [Other] - 12/30/22 10:00 am () Discharge Medications: New multivitamin [Daily-Kwame] Tablet 1 tab PO DAILY Qty: 30 0RF nicotine (polacrilex) 2 mg Gum 4 mg buccal Q2H PRN (Reason: Nicotine Cravings) Qty: 60 0RF oxcarbazepine 300 mg Tablet 300 mg PO BID Qty: 60 0RF amlodipine 5 mg Tablet 5 mg PO DAILY Qty: 30 0RF Protocol: Hold for SBP< HOLD for SBP < : 90 nicotine 21 mg/24 hr Patch 24 Hour 21 mg transdermal DAILY Qty: 30 0RF folic acid 1 mg Tablet 1 mg PO DAILY Qty: 30 0RF methadone [Methadose] 10 mg/mL Concentrate 65 mg PO DAILY Qty: 0 0RF Rx Instructions: Partial Fill upon patient request. thiamine mononitrate (vit B1) 100 mg Tablet 100 mg PO DAILY Qty: 30 0RF naloxone [Narcan] 4 mg/actuation spray,non-aerosol 4 mg intranasal Q2M PRN (Reason: opioid overdose) Qty: 2 0RF Rx Instructions: spray 1 dose into ONE nostril; alternate nostrils w each dose until help arrives Discontinued methadone [Methadone Intensol] 10 mg/mL Concentrate 70 mg PO DAILY Narcan 4 mg/actuation spray,non-aerosol 4 mg intranasal ONCE Qty: 1 0RF buprenorphine-naloxone [Suboxone] 8-2 mg film 2 film sublingual DAILY 6 Days Qty: 12 0RF Rx Instructions: place 1 strip/tab under (each) side of tongue Discharge Orders: Discharge Order (Routine); Ordered 12/07/22 Ordered By: Renata Mcelroy Diet: Advance to usual diet Activity on Discharge: As tolerated Stand Alone Forms: Patient Portal Discharge page, Community Support Care Plan Goals: Mood and Behavioral Stabilization Work on Sobriety Health Concerns: Mood and Behavioral Stabilization Work on Sobriety Plan of Treatment: Attend scheduled appointments Take medications as directed Assessment: Pt interviewed prior to discharge and found to be fully oriented and without SI/HI. Pt has insight and demonstrates good judgment in terms of wanting to pursue treatment. Pt is not in imminent risk of harm to self or others and has a safety plan that includes presenting to the closest ER or calling 911 if feeling unsafe. Pt has been observed closely by nursing and unit staff throughout admission. Pt has not engaged in any behaviors that suggest dangerousness to self or others and has demonstrated appropriate behaviors and impulse control. Discharge Date/Time: 12/08/22 10:13
== END 2022-12-08 10:13 | disposition home or self-care (01) | DRG 751 ==
PROVIDERS: Admitting Provider Psychiatry & Neurology Psychiatry; Visit Provider Clinical Nurse Specialist Psychiatric/Mental Health, Adult
DX: F33.9 Major depressive disorder, recurrent, unspecified (principal); F10.20 Alcohol dependence, uncomplicated; F12.10 Cannabis abuse, uncomplicated; F11.20 Opioid dependence, uncomplicated; F17.210 Nicotine dependence, cigarettes, uncomplicated; I10 Essential (primary) hypertension; F14.10 Cocaine abuse, uncomplicated; F19.10 Other psychoactive substance abuse, uncomplicated; Z71.6 Tobacco abuse counseling; Z91.51 Personal history of suicidal behavior; Z79.899 Other long term (current) drug therapy
CPT/HCPCS: 36415; 80061; 82607; 82746; 83036; 83735; 84439

== ENCOUNTER → 2022-11-28 17:28 | Outpatient (BNV) | payer OTHER, SELFPAY | PROVIDERS: Admitting Provider Psychiatry & Neurology Psychiatry; Visit Provider Clinical Nurse Specialist Psychiatric/Mental Health, Adult | DX: F33.40 Major depressive disorder, recurrent, in remission, unspecified (principal); F11.90 Opioid use, unspecified, uncomplicated; F14.10 Cocaine abuse, uncomplicated; F12.90 Cannabis use, unspecified, uncomplicated; F10.90 Alcohol use, unspecified, uncomplicated; F17.200 Nicotine dependence, unspecified, uncomplicated | CPT/HCPCS: 99231; 99232; 99233 ==

== ENCOUNTER 2025-01-25 01:41 | Emergency (ER) | payer MEDICAID, SELFPAY ==
[2025-01-25] VITALS (8 sets, daily range): BP systolic 99–127; BP diastolic 68–90; PULSE 58–78; RESP 14–20; TEMP 36.5–36.9; O2SAT 98–100; BMI 27.3
--- NOTE | ~2025-01-25 | CT_ITS ---
CLINICAL HISTORY: Alcoholic pancreatitis CT abdomen and pelvis with contrast Comparison: CT - CT ABDOMEN PELVIS W IV CON - 01/25/25 04:50 EDT Findings: The lung bases are clear. There are no definitive signs of pancreatitis or complications thereof. The gallbladder and the rest of the solid organs are unremarkable. No bowel obstruction, pneumoperitoneum, or pneumatosis. Pelvic contents unremarkable. Normal appendix. No acute fracture. IMPRESSION: No acute findings. This document has been electronically signed by: Robert Jaramillo MD on 01/25/2025 05:49:25
--- OUTSIDE RECORDS SUMMARY | 2025-01-25 01:18 | XMS_ITS | Encounter Summary ---
Author Organization [facility] Address [address] [place] [address] Care Team Providers Care Chief Telephone Operator Name Role Phone Physician, No Pcp Primary Care Provider Unavaila ble Reason for Visit * Reason Comments Vomiting Encounter Details Date Type Department Care Team (Late st Contact Info) Description 01/25/2025 1:18 AM EDT Emergency Emergency [address] [place] [id number] Social History Tobacco Use Types Packs/Day Years Used Date Smoking Tobacco: Never Assessed Sex and Gender Information Value Date Recorded Sex Assigned at Not on file Legal Sex Male 5:41 AM EST Gender Identity Not on file Sexual Orientation Not on file documented as of this encounter Functional Status * Are you deaf or do you have serious difficulty hearing? Answer Date of Assessment Author No 06/06/2024 5:39 AM EST Jackie Duarte RN * Are you blind or do you have serious difficulty seeing, even when wearing glasses? Answer Date of Assessment Author No 06/06/2024 5:39 AM EST Felicia, Jackie Jameson RN * Do you have serious difficulty walking or climbing stairs? Answer Date of Assessment Author No 06/06/2024 5:39 AM EST Jackie Duarte RN * Do you have serious difficulty dressing or bathing? Answer Date of Assessment Author No 06/06/2024 5:39 AM EST Jackie Duarte RN * Because of a physical, mental, or emotional condition, do you have serious difficulty doing errandsalone such as visiting the doctor? Answer Date of Assessment Author No 06/06/2024 5:39 AM EST Jackie Duarte RN documented as of this encounter Mental Status * Because of a physical, mental, or emotional condition, do you have serious difficulty concentrating, remembering, or making decisions? (5 years old or older) Answer Entry Date Author No 06/06/2024 5:39 AM Jackie Flores RN documented in this encounter Progress Notes * Melania Mcdowell RN - 01/25/2025 1:20 AM EDT PT STATES VOMITING X3 DAYS + RIGHT UPPER ABD PAIN. PT STATES HE IS A DAILY DRINKER, ABOUT 3-4 [place] PER DAY. LAST DRINK APPROX 2-3 HRS AGO. NO SX OF WITHDRAWAL AT THIS TIME. STATES HE HAS DETOXED AT HOME IN THE PAST, DENIES SEIZURE HX. documented in this encounter Plan of Treatment Scheduled Orders Name Type Priority Associated Diagnoses Orde r Schedule CBC and differential Lab STAT STAT for 1 Occurrences starting 01/25/2025 until 01/25/2025 Comprehensive metabolic panel Lab STAT STAT for 1 Occur rences starting 01/25/2025 until 01/25/2025 Lipase Lab STAT STAT for 1 Occ urrences starting 01/25/2025 until 01/25/2025 CBC auto differential Lab Routine Onc e for 1 Occurrences starting 01/25/2025 until 01/25/2025 documented as of this encounter Visit Diagnoses Not on filedocumented in this encounter Care Teams Chief Telephone Operator Relationship Specialty Start Date End Date Physician, No Pcp PCP - General 06/06/24 documented as of this encounter
[2025-01-25 02:02] LABS: MANUAL DIFF FLAG NO
[2025-01-25 02:05] LABS: Hematocrit 43.0 % (42.0-52.0); Hemoglobin 15.4 g/dl (14.0-18.0); Imm Gran Abs Auto 0.04 X10*3/uL (0.00-0.03); Imm Gran Pct Auto 0.3 % (0.0-0.4); Lymphocytes Absolute Auto 4.2 X10*3/uL (1.2-4.9); Mean Corpuscular HGB Conc 35.8 g/dl (31.0-36.0); Mean Corpuscular Hemoglobin 29.9 pg (27.0-33.0); Mean Corpuscular Volume 83.5 fL (80.0-98.0); NRBC Abs Auto 0.000 X10*3/uL (0.0-0.012); NRBC Pct Auto 0.0 /100WBC (0.0-0.2); Platelet Count 342 X10*3/uL (160-400); Red Blood Count 5.15 X10*6/uL (4.60-5.80); White Blood Count 14.4 X10*3/uL (4.8-10.8)
[2025-01-25 02:18] LABS: Alanine Aminotransferase 22 U/L (0-40); Albumin Level 4.7 g/dL (3.5-5.0); Alkaline Phosphatase 103 U/L (39-117); Anion Gap 16 (12-20); Aspartate Amino Transferase 25 U/L (5-37); Blood Urea Nitrogen 26 mg/dL (9-16); Calcium 9.7 mg/dL (8.4-10.2); Carbon Dioxide 30 mmol/L (22-29); Chloride 97 mmol/L (96-108); Creatinine Clr Calc Pharmacy 87.0; Estimated Glomerular Filt Rate > 60; Lipase 21 U/L (8-78); Potassium 3.6 mmol/L (3.3-5.1); Sodium 139 mmol/L (135-145); Total Protein 7.4 g/dL (6.5-8.0)
--- OUTSIDE RECORDS SUMMARY | 2025-01-25 02:43 | XMS_ITS | Patient Health Record ---
Author Organization [facility] Address [address], [place] [id number] Care Team Providers Care Framing Mill Operator Helper Name Role Phone NO, PCP Primary Care Provider [facility], Nursing Unavailable [phone] Allergies No Known Allergies Reason For Referral No Information Medications Medication SIG (Take, Route, Fr equency, Duration) Notes Start Date End Date Status amoxicillin 875 mg 1 tab(s) orally ever y 12 hours for 7 days 11/05/2022 Active ibuprofen 800 mg 1 tab(s) orally 3 ti mes a day for 10 days 11/05/2022 Active methadone 5 mg 65mg orally once a day Active Social History Tobacco Use: Social History Observation Description Date Details (start date - stop date) Current Smoker NA - NA Tobacco Use Assessment MU Question Answer Notes What is your current smoking status? current smo ker How often do you smoke? every day How many cigarettes a day do you smoke? 21-30 How soon after you wake up do you smoke your fir st cigarette? Within 5 minutes Are you interested in quitting? not ready to risa t Patient counseled on the lolis gers of tobacco use and advised to quit: 11/13/2022 Problems Problem Type SNOMED Code ICD Code Onset Dates Problem Status W/U Status Risk Notes Problem Sheltered homelessness (215588234792159 ) Sheltered homelessness (Z59.01) Active confirmed Encounters Encounter Location Date Provider Diagnosis [facility] [address], [place] [id number] 06/13/2024 Nursing [facility] Plan Of Treatment No Information Insurance Providers Payer Name Payer Address Payer Phone Subscriber Number Group Number Insured Name Patient Relationship to Insured Coverage Start Date Coverage End Date [place] Medicaid C3 [address] [place], [place] [id number] Vinicio Neal Self - patient is the insured 3 Medical (General) History Medical History History ICD Code HTN Tobacco use trouble healing opiate dependence Hospitalization History Reason Date(Month/Year) [facility] psych admit 2020
--- OUTSIDE RECORDS SUMMARY | 2025-01-25 02:43 | XMS_ITS | Clinical Summary ---
Author Organization [facility] Address [address] [place] [address] Phone Care Team Providers Care Station Manager Name Role Phone Physician, No Pcp Primary Care Provider Unavaila ble Allergies Active Allergy Reactions Criticality Noted Date Comments Penicillins 06/05/2024 Shellfish Derived 06/05/2024 Tree Nuts 06/05/2024 Peanuts Medications acetaminophen (TYLENOL) 500 mg tablet Take 2 tablets (1,000 mg total) by mouth every 8 (eight) hours. 30 tablet Active ibuprofen (ADVIL,MOTRIN) 600 mg tablet Take 1 tablet (600 mg total) by mouth every 8 (eight) hours if needed for moderate pain or fever - temperature GREATER than 38 C (100.4 F). 30 tablet Active Encounters Date Type Department Care Team Description 01/25/2025 1:18 AM EDT Emergency [facility] Emergency [address] [place] [address] from Last 3 Months Social History Tobacco Use Types Packs/Day Years Used Date Smoking Tobacco: Never Assessed Sex and Gender Information Value Date Recorded Sex Assigned at Not on file Legal Sex Male 5:41 AM EST Gender Identity Not on file Sexual Orientation Not on file Last Filed Vital Signs Vital Sign Reading Time Taken Comments Blood Pressure 134/92 06/06/2024 5:26 AM EST Pulse 65 06/06/2024 5:26 AM EST Temperature 36.9 C (98.4 F) 06/06/2024 5:26 AM EST Respiratory Rate 20 06/06/2024 5:26 AM EST Oxygen Saturation 95% 06/06/2024 5:26 AM EST Inhaled Oxygen Concentration - - Weight 81.6 kg (180 lb) 06/05/2024 7:47 PM EST Height 170.2 cm (5' 7 ) 06/05/2024 7:47 PM EST Body Mass Index 28.19 06/05/2024 7:47 PM EST Plan of Treatment Health Maintenance Due Date Last Done Comments DTaP,Tdap,and Td Vaccines (1 - Tdap) 2006 Hepatitis B Vaccines (1 of 3 - 19+ 3-dose series) 2006 Cholesterol Screening (Lipid Panel) 05/03/2022 HIV Screening 05/03/2022 Hepatitis C Screening 05/03/2022 Social Influencers of Health Screening 05/03/2022 COVID-19 Vaccine ( - 2023-2 5 season) 2024 Depression Screening 05/31/2024 Influenza Vaccine (#1) 2025 HIB Vaccines Aged Out No longer eligi ble based on patient's age to complete this topic HPV Vaccines Aged Out No longer eligi ble based on patient's age to complete this topic Hepatitis A Vaccines Aged Out No long er eligible based on patient's age to complete this topic IPV Vaccines Aged Out No longer eligi ble based on patient's age to complete this topic MMR Vaccines Aged Out No longer eligi ble based on patient's age to complete this topic Meningococcal ACWY Vaccine Aged Out N o longer eligible based on patient's age to complete this topic Meningococcal B Vaccine Aged Out No l onger eligible based on patient's age to complete this topic Pneumococcal Vaccine: Pediat rics (0 to 5 Years) and At-Risk Patients (6 to 49 Years) Aged Out No longer eligible b ased on patient's age to complete this topic RSV Immunization Patients Un casandra 20 months Aged Out No longer eligible b ased on patient's age to complete this topic Varicella Vaccines Aged Out No longer eligible based on patient's age to complete this topic Insurance MEDICAID - [place] Care Teams Station Manager Relationship Specialty Start Date End Date Physician, No Pcp PCP - General 06/06/24
--- NOTE | 2025-01-25 03:04 | ED.ABDPAIN ---
HPI - Abdominal Pain General Chief Complaint: Abdominal Pain Stated Complaint: Vomiting Time Seen by Provider: 01/25/25 04:27 Source: patient and family Mode of arrival: ambulatory Limitations: no limitations History of Present Illness ED Provider: DR. Sifuentes HPI narrative: 39-year-old male with history of alcohol dependence, polysubstance abuse, opiate dependence on methadone came in for evaluation of abdominal pain and vomiting patient is unable to tolerate p.o. intake for the past 3-4 days. +vomiting, + nausea, no hallucination, no tremor. Related Data Previous Rx's ?Medication ?Instructions ?Recorded amlodipine 5 mg tablet 5 mg PO DAILY #30 tabs 12/07/22 folic acid 1 mg tablet 1 mg PO DAILY #30 tabs 12/07/22 methadone 10 mg/mL oral 65 mg (6.5 mL) PO DAILY #0 mL 12/07/22 concentrate (Methadose) multivitamin (Daily-Kwame tablet) 1 tab PO DAILY #30 tabs 12/07/22 naloxone 4 mg/actuation nasal 4 mg intranasal Q2M PRN opioid 12/07/22 spray (Narcan) overdose #2 ea nicotine (polacrilex) 2 mg gum 4 mg buccal Q2H PRN Nicotine 12/07/22 Cravings #60 ea nicotine 21 mg/24 hr daily 21 mg transdermal DAILY #30 ea 12/07/22 transdermal patch oxcarbazepine 300 mg tablet 300 mg PO BID #60 tabs 12/07/22 thiamine mononitrate (vit B1) 100 100 mg PO DAILY #30 tabs 12/07/22 mg tablet omeprazole 40 mg capsule,delayed 40 mg PO DAILY #14 caps 01/25/25 release ondansetron 4 mg disintegrating 4 mg PO Q8H PRN nausea and 01/25/25 tablet vomiting #10 tabs Allergies Allergy/AdvReac Type Severity Reaction Status Date / Time shellfish derived Allergy Unknown Unknown Verified 09/17/20 11:36 peanut AdvReac Severe Anaphylaxis Verified 01/25/25 01:50 Penicillins AdvReac Anaphylaxis Verified 01/25/25 01:50 Review of Systems Review of Systems All other systems are reviewed and are negative Constitutional: Reports as per HPI and Reports no additional constitutional complaints Eyes: Reports as per HPI and Reports no additional eye complaints Reports system reviewed and no additional complaints, except as documented Cardiovascular: Reports as per HPI and Reports no additional cardiovascular complaints Respiratory: Reports as per HPI and Reports no additional respiratory complaints Gastrointestinal: Reports as per HPI and Reports no additional gastrointestinal complaints Genitourinary: Reports no additional female genitourinary complaints Musculoskeletal: Reports no additional musculoskeletal complaints Skin/Breast: Reports system reviewed and no additional complaints, except as docu Psychiatric: Reports no additional psychiatric complaints Endocrine: Reports no additional endocrine complaints Hematologic/Lymphatic: Reports no additional hematologic/lymphatic complaints Allergic/Immunologic: Reports no additional allergic/immunologic complaints Reports system reviewed and no additional complaints, except as documented and Reports Abnormal speech present [facility] Past Medical History Medical History Hypertension Cannabis use disorder Cocaine use disorder Recurrent major depression Tobacco use disorder Alcohol use disorder Opioid use disorder Social History Social History Household Members: Significant Other Housing: House Do you presently have visiting nurse or other home services: No Alcohol intake: current Alcohol type: hard liquor Patient Tobacco Use Status: Current everyday Tobacco user Tobacco use type: Cigarette and Cigar Cigarette Packs Per Day: 2 Cigarettes Per Day: 40.0 Smoked in Last 30 Days: No Second Hand Smoke Exposure: Yes Substance Use Type: Crack/Cocaine and Opiates Advance Directives: No Advance Directives Information Provided: Yes Do you have a plan to hurt others: No Plan service: No Sexual orientation: Straight/Heterosexual Physical Exam ED Vital Signs: Vital Signs - 24 hr 01/25/25 01:45 01/25/25 05:31 01/25/25 06:18 Temperature 98.0 F 98.5 F Pulse Rate 78 58 61 Respiratory Rate 20 18 16 Blood Pressure 127/90 H 116/83 99/68 Pulse Oximetry 98 99 98 Oxygen Delivery Method Room Air Room Air Room Air 01/25/25 07:41 01/25/25 09:45 01/25/25 11:40 Temperature 97.7 F 98.4 F Pulse Rate 62 60 58 Respiratory Rate 16 14 14 Blood Pressure 109/75 114/90 H 116/85 Pulse Oximetry 99 100 100 Oxygen Delivery Method Room Air Room Air Room Air BMI result Body Mass Index 27.3 Vital signs have been reviewed and appear to be correct. Blood pressure elevated. Heart rate normal. Respiratory rate normal. Temperature normal. Oxygen saturation normal. Appearance: Alert. Oriented X3. No acute distress. Head: Normal external exam. Normocephalic. Atraumatic. No Fonseca signs noted. No raccoon eyes noted Eyes: PERRLA. EOMI. Conjunctiva and sclera normal. Eyelids normal. ENT: TM's Normal. Pharynx normal. Uvula midline. Moist mucous membranes. No trismus noted. No drooling noted. No muffled voice noted. Neck: Normal inspection. Neck supple. FROM. No adenopathy. Thyroid Normal. No meningeal signs. No neck mass noted. CVS: Normal heart rate and rhythm. Heart sound normal. No murmurs noted. Pulses normal throughout. Respiratory: No respiratory distress. Painless inspiration. Breath sounds normal. No wheezes/rales/rhonchi noted. Chest nontender. No accessory muscle usage noted or decreased air movement noted. Abdomen: Soft, mild epigastric tenderness. Bowel sounds normal in all 4 quadrants. No distention noted. No organomegaly noted. No visible injury noted. Back: No CVA tenderness. Full range of motion noted. Skin: Skin warm and dry. Normal skin color. Normal skin turgor. No rashes/lesions/lacerations noted. Extremities: No lower extremity edema. Extremities exhibit normal range of motion. Extremities nontender. Neuro: Oriented X 3. Cranial nerve exam: II-XII are grossly intact No motor deficit. No sensory deficit. Reflexes normal. Course Reevaluation(s) Reevaluation #1: Patient is able to tolerate p.o. intake, no signs of alcohol withdrawal, no more nausea or vomiting. Patient is requesting to be discharged home. Will discharge and follow-up with PCP. Instructed to return if worsening of the symptoms. Leukocytosis secondary to vomiting, CT of the abdomen pelvis with no acute findings. Will get ED recovery consult to help patient was recovery. Discontinue phenobarbital. Will start the patient on physician observation. Time: 06:28 Reevaluation #2: 01/25/2025 1240 Shannan Plascencia PA-C ---> Observation ended at 12:40 on 01/25/2025. Patient placed in detox by CARE team. Patient cleared for discharge to go there. Medical Decision Making Differential Diagnosis Differential Diagnoses: The differential diagnosis associated with the presentation includes (Alcoholic gastritis, alcoholic pancreatitis, acute colitis, SBO, acute pancreatitis, dehydration, electrolyte derangement, severe anemia.) Admission/Observation Consideration of admission/observation: Escalation of care including admission/observation considered Lab Data MDM Lab Attestation statement: I reviewed the patient's lab results. 01/25/25 01:58 01/25/25 01:58 Labs: Lab Results 01/25/25 01/25/25 Range/Units 01:58 04:35 WBC 14.4 H (4.8-10.8) X10*3/uL RBC 5.15 (4.60-5.80) X10*6/uL Hgb 15.4 (14.0-18.0) g/dl Hct 43.0 (42.0-52.0) % MCV 83.5 (80.0-98.0) fL MCH 29.9 (27.0-33.0) pg MCHC 35.8 (31.0-36.0) g/dl RDW 11.9 (11.0-16.0) % Plt Count 342 (160-400) X10*3/uL MPV 9.0 L (9.4-12.4) fL Immature Gran % (Auto) 0.3 (0.0-0.4) % Neut % (Auto) 62.3 (45-73) % Lymph % (Auto) 29.2 (20-40) % [place] % (Auto) 6.3 (2-11) % Eos % (Auto) 1.5 (0-4) % Baso % (Auto) 0.4 (0-2) % Lymph # (Auto) 4.2 (1.2-4.9) X10*3/uL [place] # (Auto) 0.9 (0.1-1.2) X10*3/uL Eos # (Auto) 0.2 (0.0-0.4) X10*3/uL Baso # (Auto) 0.1 (0.0-0.2) X10*3/uL Abs Immat Gran (auto) 0.04 H (0.00-0.03) X10*3/uL Absolute Neuts (auto) 9.0 H (2.0-8.3) x10*3/uL Absolute Nucleated RBC 0.000 (0.0-0.012) X10*3/uL Nucleated RBC % (auto) 0.0 (0.0-0.2) /100WBC Sodium 139 (135-145) mmol/L Potassium 3.6 (3.3-5.1) mmol/L Chloride 97 (96-108) mmol/L Carbon Dioxide 30 H (22-29) mmol/L Anion Gap 16 (12-20) BUN 26 H (9-16) mg/dL Creatinine 1.20 (0.5-1.4) mg/dL Estim Creat Clear Calc 87.0 Estimated GFR > 60 Random Glucose 60 (60-115) mg/dL Calcium 9.7 (8.4-10.2) mg/dL Magnesium 2.1 (1.6-2.6) mg/dL Total Bilirubin 0.3 (0.0-1.0) mg/dL AST 25 (5-37) U/L ALT 22 (0-40) U/L Alkaline Phosphatase 103 (39-117) U/L Total Protein 7.4 (6.5-8.0) g/dL Albumin 4.7 (3.5-5.0) g/dL Lipase 21 (8-78) U/L Urine Color Yellow Urine Appearance Clear Urine pH 5.5 (5.0-9.0) Ur Specific [place] 1.015 (1.005-1.025) Urine Protein Negative (Neg-Trace) mg/dL Urine Glucose (UA) Negative (Negative) mg/dL Urine Ketones Negative (Negative) mg/dL Urine Blood Negative (Negative) Urine Nitrite Negative (Negative) Ur Leukocyte Esterase Negative (Negative) Urine Opiates Screen Not Detected (Not Detect) Ur Buprenorphine Scrn Not Detected (Not Detect) ng/mL Ur Oxycodone Screen Not Detected (Not Detect) ng/mL Urine Methadone Screen Positive H (Not Detect) ng/mL Urine Fentanyl Screen POSITIVE H (Not Detect) Ur Barbiturates Screen Not Detected (Not Detect) Ur Phencyclidine Scrn Not Detected (Not Detect) Ur Amphetamines Screen Not Detected (Not Detect) U Benzodiazepines Scrn Not Detected (Not Detect) Urine Cocaine Screen POSITIVE H (Not Detect) U Marijuana (THC) Screen Not Detected (Not Detect) Ethyl Alcohol < 10 mg/dL Independent Interpretation I performed an independent interpretation of an: CT Scan (Abdomen pelvis: No acute findings) Radiology Impression Discussion of test interpretation with radiology: I have reviewed the radiologist's reading. Medications Administered Discontinued Medications Generic Name Dose Route Start Last Admin Trade Name Freq PRN Reason Stop Dose Admin Famotidine 20 mg 01/25/25 04:38 01/25/25 04:55 Famotidine/Pf 20 Mg/2 Ml Vial IVPUSH 01/25/25 04:39 20 mg ONCE ONE Administration Iohexol 85 ml 01/25/25 05:15 01/25/25 05:16 Iohexol 350 Mg/Ml 100 Ml Infus..Btl IV 01/25/25 05:16 85 ml ONCE ONE Administration Lorazepam 1 mg 01/25/25 10:48 01/25/25 10:57 Lorazepam 1 Mg Tablet PO 01/25/25 10:49 1 mg ONCE ONE Administration Ondansetron HCl 4 mg 01/25/25 04:38 01/25/25 04:55 Ondansetron Hcl 4 Mg/2 Ml Vial IVPUSH 01/25/25 04:39 4 mg ONCE ONE Administration Ondansetron HCl 4 mg 01/25/25 04:40 01/25/25 05:13 Ondansetron Hcl 4 Mg/2 Ml Vial IVPUSH 01/25/25 04:41 Not Given ONCE ONE Phenobarbital Sodium 292 mg 01/25/25 05:30 01/25/25 06:05 Phenobarbital Sodium 130 Mg/Ml Im Once IM 01/25/25 05:31 292 mg ONCE ONE Administration Protocol Discharge Plan Discharge Clinical Impression: Alcoholic gastritis Patient Disposition: Home, Self-Care Instructions: Gastritis (ED) Prescriptions: New omeprazole 40 mg capsule,delayed release(DR/EC) 40 mg PO DAILY Qty: 14 0RF ondansetron 4 mg tablet,disintegrating 4 mg PO Q8H PRN (Reason: nausea and vomiting) Qty: 10 0RF No Action multivitamin [Daily-Kwame] Tablet 1 tab PO DAILY Qty: 30 0RF nicotine (polacrilex) 2 mg Gum 4 mg buccal Q2H PRN (Reason: Nicotine Cravings) Qty: 60 0RF oxcarbazepine 300 mg Tablet 300 mg PO BID Qty: 60 0RF amlodipine 5 mg Tablet 5 mg PO DAILY Qty: 30 0RF Protocol: Hold for SBP< HOLD for SBP < : 90 nicotine 21 mg/24 hr Patch 24 Hour 21 mg transdermal DAILY Qty: 30 0RF folic acid 1 mg Tablet 1 mg PO DAILY Qty: 30 0RF methadone [Methadose] 10 mg/mL Concentrate 65 mg PO DAILY Qty: 0 0RF Rx Instructions: Partial Fill upon patient request. thiamine mononitrate (vit B1) 100 mg Tablet 100 mg PO DAILY Qty: 30 0RF naloxone [Narcan] 4 mg/actuation spray,non-aerosol 4 mg intranasal Q2M PRN (Reason: opioid overdose) Qty: 2 0RF Rx Instructions: spray 1 dose into ONE nostril; alternate nostrils w each dose until help arrives Print Language: Italian
[2025-01-25 04:45] LABS: Appearance Urine Clear; Glucose Urine UA Negative (Negative); PH 5.5 (5.0-9.0); Specific Gravity - Urine 1.015 (1.005-1.025)
[2025-01-25 04:54] LABS: Magnesium 2.1 mg/dL (1.6-2.6)
[2025-01-25 04:55] LABS: Cannabinoid Screen Urine Not Detected (Not Detect)
[2025-01-25] MEDS: iohexoL 350 MG/ML 100 ML INFUS..BTL 85 ML IV (05:16)
[2025-01-25] MEDS: PHENobarbitaL sodium 130 MG/ML IM ONCE 292 MG IM (06:05)
--- NOTE | 2025-01-25 07:43 | PC.NURSE ---
assumed care of pt. Pt is A+Ox4, sleepy but wakes to verbal stimuli. RR even and unlabored, denies SOB or CP. Pt denies any pain, denies n/v at this time. Pt is calm,cooperative. Pt ambualtes indepdently at baseline.
== END 2025-01-25 12:57 | disposition home or self-care (01) ==
PROVIDERS: Emergency Provider Emergency Medicine
DX: R11.2 Nausea with vomiting, unspecified (principal); K29.20 Alcoholic gastritis without bleeding; R10.2 Pelvic and perineal pain; F17.210 Nicotine dependence, cigarettes, uncomplicated; F11.10 Opioid abuse, uncomplicated; Z71.51 Drug abuse counseling and surveillance of drug abuser; Z79.899 Other long term (current) drug therapy
CPT/HCPCS: 36415; 74177; 80053; 80307; 81003; 83690; 83735; 85025; 96372; 96374; 96375; 99285; J1308; J2405; J2560; Q9967; S9485

== ENCOUNTER → 2025-01-25 04:38 | Outpatient (BNV) | payer MEDICAID, SELFPAY | PROVIDERS: Emergency Provider Emergency Medicine; Visit Provider Radiology Diagnostic Radiology | DX: K85.20 Alcohol induced acute pancreatitis without necrosis or infection (principal) | CPT/HCPCS: 74177 ==